=== PATIENT | male | born 1990 | race Two or more races ===

== ENCOUNTER 2018-03-27 14:08 | Emergency (ER) | payer OTHER ==
[2018-03-27 14:13] VITALS: TEMP 97.8
[2018-03-27] MEDS ORDERED: MORPHINE SULFATE 4 MG/ML SYRINGE IV STA (14:27)
[2018-03-27] MEDS ORDERED: SODIUM CHLORIDE 0.9% 1,000 ML IV STA (14:27)
[2018-03-27] MEDS ORDERED: ONDANSETRON 4 MG/2 ML VIAL IVP STA ×2 (14:27→16:48)
[2018-03-27] MEDS ORDERED: LORazepam 2 MG/ML INJ IV STA ×2 (14:28→16:48)
--- NOTE | 2018-03-27 14:37 | ED ---
General Adult HPI - General Source: patient, RN notes reviewed Mode of arrival: ambulatory Limitations: no limitations <Cristian Blood - Last Filed: 03/27/18 14:35> <Marcus Balderrama - Last Filed: 03/27/18 17:51> - General Chief complaint: Nausea/Vomiting/Diarrhea Stated complaint: Vomiting Time Seen by Provider: 03/27/18 14:23 - History of Present Illness Initial comments: Patient 28-year-old male significant past medical history for pancreatitis, who presented to the emergency room today with a chief complaint of increased abdominal pain over the last 2 days. He states had increased nausea vomiting and diarrhea. Denies any signs of blood. States feels similar to pick her tetanus is had in the past. Pain is sharp located in the upper abdomen. Patient does admit to history of pancreatitis from alcohol abuse. States that he didn't drink recently having a 12 pack 3 days ago. Patient denies any recent fever, chills, shortness of breath, chest pain, back pain, numbness or tingling , headaches or visual changes, or any other complaints. (Cristian Blood) - Related Data Home Medications Medication Instructions Recorded Confirmed Multivitamin,Therapeutic [Thera] 1 tab PO DAILY 03/27/18 03/27/18 Omeprazole 20 mg PO DAILY 03/27/18 03/27/18 Previous Rx's Medication Instructions Recorded HYDROcodone/APAP 5-325MG [[place] 1 tab PO Q6HR PRN 3 Days #12 tab 03/27/18 5-325] Ondansetron Odt [Zofran Odt] 4 mg PO Q8HR PRN #12 tab 03/27/18 Pantoprazole [Protonix] 40 mg PO DAILY #24 tablet. 03/27/18 Allergies Allergy/AdvReac Type Severity Reaction Status Date / Time Iodinated Contrast- Oral and Allergy Rash/Hives Verified 03/27/18 14:30 IV Dye zolpidem [From Ambien] Allergy Unknown Verified 03/27/18 14:30 Review of Systems ROS Other: All systems not noted in ROS Statement are negative. <Cristian Blood - Last Filed: 03/27/18 14:35> ROS Other: All systems not noted in ROS Statement are negative. <Marcus Balderrama - Last Filed: 03/27/18 17:51> ROS Statement: Those systems with pertinent positive or pertinent negative responses have been documented in the HPI. Past Medical History Past Medical History: GERD/Reflux, Seizure Disorder Additional Past Medical History / Comment(s): pancreatitis, stomach ulcers History of Any Multi-Drug Resistant Organisms: None Reported Past Surgical History: No Surgical Hx Reported Past Psychological History: Anxiety, Bipolar, Depression Smoking Status: Current every day smoker Past Alcohol Use History: Occasional Past Drug Use History: Marijuana <Cristian Blood - Last Filed: 03/27/18 14:35> General Exam Limitations: no limitations <Cristian Blood - Last Filed: 03/27/18 14:35> <Marcus Balderrama - Last Filed: 03/27/18 17:51> - General Exam Comments Initial Comments: General: The patient is awake and alert, in mild distress and anxious. Eye: Pupils are equal, round and reactive to light, extra-ocular movements are intact. No nystagmus. There is normal conjunctiva bilaterally. No signs of icterus. Ears, nose, mouth and throat: There are moist mucous membranes and no oral lesions. Neck: The neck is supple, there is no tenderness or JVD. Cardiovascular: There is a regular rate and rhythm. No murmur, rub or gallop is appreciated. Respiratory: Lungs are clear to auscultation, respirations are non-labored, breath sounds are equal. No wheezes, stridor, rales, or rhonchi. Gastrointestinal: Abdomen soft on palpation. Patient does have tenderness epigastric. No rebound, guarding or CVA tenderness. Musculoskeletal: Normal ROM, no tenderness. Neurological: A&O x 3. CN II-XII intact, There are no obvious motor or sensory deficits. Coordination appears grossly intact. Speech is normal. Skin: Skin is warm and dry and no rashes or lesions are noted. Psychiatric: Cooperative, appropriate mood & affect, normal judgment. (Cristian Blood) Vital Signs 03/27/18 03/27/18 03/27/18 14:08 15:12 17:43 Temperature 97.8 F Pulse Rate 129 H 65 68 Respiratory 24 20 16 Rate Blood Pressure 176/103 121/90 130/84 O2 Sat by Pulse 97 95 99 Oximetry Medical Decision Making <Cristian Blood - Last Filed: 03/27/18 14:35> - Lab Data Result diagrams: 03/27/18 14:36 03/27/18 14:36 <Marcus Balderrama - Last Filed: 03/27/18 17:51> - Medical Decision Making Patient care was sent out to me by previous shift physician assistant corporate controller. Briefly , patient is a 28-year-old male presents with abdominal pain. Patient had a relapse in alcohol. He drinks several alcoholic beverages. Since then he's been developing epigastric symptoms. Labs and imaging studies were unremarkable. Patient given GI cocktail analgesia and intravenous fluids. Reevaluation done by myself shows improvement of symptoms. Patient's abdomen is soft. Discussed patient that he should follow-up with GI doctor. Patient given by mouth analgesia, proton pump inhibitor and antinausea medication. Patient to be discharge. Given strict return precautions with worsening symptoms or constitutional symptoms. He is understandable and agreeable to plan. (Marcus Balderrama) - Lab Data Lab Results 03/27/18 03/27/18 03/27/18 Range/Units 14:36 14:36 15:10 WBC 11.5 H (3.8-10.6) k/uL RBC 5.70 (4.30-5.90) m/uL Hgb 17.6 H (13.0-17.5) gm/dL Hct 53.8 H (39.0-53.0) % MCV 94.3 (80.0-100.0) fL MCH 30.9 (25.0-35.0) pg MCHC 32.8 (31.0-37.0) g/dL RDW 12.4 (11.5-15.5) % Plt Count 464 H (150-450) k/uL Neutrophils % 70 % Lymphocytes % 22 % Monocytes % 5 % Eosinophils % 1 % Basophils % 1 % Neutrophils # 8.0 H (1.3-7.7) k/uL Lymphocytes # 2.5 (1.0-4.8) k/uL Monocytes # 0.6 (0-1.0) k/uL Eosinophils # 0.1 (0-0.7) k/uL Basophils # 0.1 (0-0.2) k/uL Sodium 136 L (137-145) mmol/L Potassium 4.3 (3.5-5.1) mmol/L Chloride 102 (98-107) mmol/L Carbon Dioxide 19 L (22-30) mmol/L Anion Gap 15 mmol/L BUN 14 (9-20) mg/dL Creatinine 0.97 (0.66-1.25) mg/dL Est GFR (CKD-EPI)AfAm >90 (>60 ml/min/1.73 sqM) Est GFR (CKD-EPI)NonAf >90 (>60 ml/min/1.73 sqM) Glucose 102 H (74-99) mg/dL Calcium 10.5 H (8.4-10.2) mg/dL Total Bilirubin 1.5 H (0.2-1.3) mg/dL AST 48 (17-59) U/L ALT 28 (21-72) U/L Alkaline Phosphatase 105 (38-126) U/L Total Protein 8.2 (6.3-8.2) g/dL Albumin 5.0 (3.5-5.0) g/dL Amylase 105 (30-110) U/L Lipase 177 (23-300) U/L Urine Color Dark Yellow Urine Appearance Cloudy (Clear) Urine pH 6.0 (5.0-8.0) Ur Specific [place] 1.027 (1.001-1.035) Urine Protein 2+ H (Negative) Urine Glucose (UA) Negative (Negative) Urine Ketones 4+ H (Negative) Urine Blood Negative (Negative) Urine Nitrite Negative (Negative) Urine Bilirubin 1+ H (Negative) Urine Urobilinogen 4.0 (<2.0) mg/dL Ur Leukocyte Esterase Negative (Negative) Urine RBC 2 (0-5) /hpf Urine WBC 3 (0-5) /hpf Hyaline Casts 4 H (0-2) /lpf Urine Mucus Many H (None) /hpf Disposition <Cristian Blood - Last Filed: 03/27/18 14:35> Is patient prescribed a controlled substance at d/c from ED?: Yes If prescribed controlled substance>3 days was MAPS reviewed?: Prescribed <3 Days Time of Disposition: 17:51 <Marcus Balderrama - Last Filed: 03/27/18 17:51> Clinical Impression: Abdominal pain Disposition: HOME SELF-CARE Condition: Good Instructions (If sedation given, give patient instructions): Acute Nausea and Vomiting in Children (ED) Prescriptions: HYDROcodone/APAP 5-325MG [[place] 5-325] 1 tab PO Q6HR PRN 3 Days #12 tab PRN Reason: Severe Pain Ondansetron Odt [Zofran Odt] 4 mg PO Q8HR PRN #12 tab PRN Reason: Nausea Pantoprazole [Protonix] 40 mg PO DAILY #24 tablet.dr Referrals: None,Stated [REFERRING] - 1-2 days Julian King MD [STAFF PHYSICIAN] - 1-2 days
[2018-03-27 14:58] LABS: Basophils # (A) 0.1 k/uL (0-0.2); Basophils % (A) 1 %; Eosinophils # (A) 0.1 k/uL (0-0.7); Eosinophils % (A) 1 %; HCT 53.8 % (39.0-53.0); HGB 17.6 gm/dL (13.0-17.5); Lymphocytes # (A) 2.5 k/uL (1.0-4.8); Lymphocytes % (A) 22 %; MCH 30.9 pg (25.0-35.0); MCHC 32.8 g/dL (31.0-37.0); MCV 94.3 fL (80.0-100.0); Mean Platelet Volume 6.2; Monocytes # (A) 0.6 k/uL (0-1.0); Monocytes % (A) 5 %; Neutrophils % (A) 70 %; Platelet Count 464 k/uL (150-450); RDW 12.4 % (11.5-15.5); WBC 11.5 k/uL (3.8-10.6)
[2018-03-27 15:08] LABS: Amylase 105 U/L (30-110); Anion Gap 15 mmol/L; Blood Urea Nitrogen 14 mg/dL (9-20); Calcium 10.5 mg/dL (8.4-10.2); Carbon Dioxide 19 mmol/L (22-30); Chloride 102 mmol/L (98-107); Glucose 102 mg/dL (74-99); Lipase 177 U/L (23-300); Sodium 136 mmol/L (137-145); Total Bilirubin 1.5 mg/dL (0.2-1.3); Total Protein 8.2 g/dL (6.3-8.2)
[2018-03-27 15:09] LABS: ALT 28 U/L (21-72); AST 48 U/L (17-59); Alkaline Phosphatase 105 U/L (38-126); Potassium 4.3 mmol/L (3.5-5.1)
--- NOTE | 2018-03-27 15:24 | XR ---
EXAMINATION TYPE: XR KUB DATE OF EXAM: 03/27/2018 COMPARISON: NONE HISTORY: Pain TECHNIQUE: One view abdominal series FINDINGS: The osseous structures are intact. The bowel gas pattern is nonspecific. Lung bases are clear. Calc ification the right upper quadrant noted. Metallic foreign body overlying the left sacrum. IMPRESSION: 1. Nonspecific abdomen. There is a metallic foreign body overlying the left sacrum. 2. Right upper quadrant calcification may be related to gallstone or hepatic granuloma.
[2018-03-27 15:30] LABS: Appearance,Urine Cloudy (Clear); Bilirubin,Urine 1+ (Negative); Blood,Urine Negative (Negative); Color,Urine Dark Yellow; Glucose,Urine (UA) Negative (Negative); Hyaline Casts,Urine 4 /lpf (0-2); Ketones,Urine 4+ (Negative); Leukocyte Esterase,Urine Negative (Negative); Mucus,Urine Many /hpf; Nitrite,Urine Negative (Negative); Protein,Urine 2+ (Negative); RBC,Urine 2 /hpf (0-5); Specific Gravity,Urine 1.027 (1.001-1.035)
--- NOTE | 2018-03-27 16:40 | US ---
EXAMINATION TYPE: US abdomen limited DATE OF EXAM: 03/27/2018 COMPARISON: xray CLINICAL HISTORY: Pain, nausea, vomiting and pain x 3 days EXAM MEASUREMENTS: Liver Length: 14.7 cm Gallbladder Wall: 0.2 cm CBD: 0.5 cm Right Kidney: 10.3 x 5.4 x 5.6 cm Patient has severe overlying bowel gas. He has a lot of pain and had difficulty holding his breath. E xam somewhat limited. Pancreas: Obscured by bowel gas Liver: shadowing echogenic focus right lobe of liver measuring 0.9 x 0.6 x 1.0cm Gallbladder: wnl Evidence for sonographic Jones's sign: no CBD: very limited visualization due due to overlying bowel gas Right Kidney: Inferior pole obscured by overlying bowel gas IMPRESSION: 1. Limited examination. 2. Hepatic of focal calcification.
[2018-03-27] MEDS ORDERED: MAG HYDROX/AL HYDROX/SIMETH 30 ML, HYOSCYAMINE ELIXIR 10 ML, CIMETIDINE HCL 300 MG, LID... PO STA ×4 (16:49)
[2018-03-27 17:44] VITALS: BP 130/84; PULSE 68; RESP 16
== END 2018-03-27 17:55 | disposition home or self-care (01) ==
LOC: EC 14:08
DX: R10.10 Upper abdominal pain, unspecified (principal); R11.2 Nausea with vomiting, unspecified; R19.7 Diarrhea, unspecified; K21.9 Gastro-esophageal reflux disease without esophagitis; F17.200 Nicotine dependence, unspecified, uncomplicated; Z79.899 Other long term (current) drug therapy; Z88.8 Allergy status to other drugs, medicaments and biological substances; Z91.041 Radiographic dye allergy status
CPT/HCPCS: 36415; 80053; 82150; 83690; 85025; 81001; 74018; 76705; 99284; 96374; 96375 ×2; 96376 ×2; 96361; J2060; J2270; J2405

== ENCOUNTER 2018-03-29 12:41 | Emergency (ER) | payer OTHER ==
[2018-03-29 13:06] VITALS: TEMP 98.3
[2018-03-29] MEDS ORDERED: SODIUM CHLORIDE 0.9% 1,000 ML IV STA ×2 (13:14)
[2018-03-29] MEDS ORDERED: ONDANSETRON 4 MG/2 ML VIAL IVP STA ×2 (13:14→16:30)
[2018-03-29] MEDS ORDERED: FAMOTIDINE 20 MG/2 ML VIAL IV STA (13:15)
[2018-03-29] MEDS ORDERED: LORazepam 2 MG/ML INJ IV STA ×2 (13:15→16:30)
--- NOTE | 2018-03-29 13:18 | ED ---
General Adult HPI - General Chief complaint: Nausea/Vomiting/Diarrhea Stated complaint: abd pain Time Seen by Provider: 03/29/18 13:10 Source: patient, RN notes reviewed, old records reviewed Mode of arrival: ambulatory Limitations: no limitations - History of Present Illness Initial comments: Patient 28-year-old male presenting to the emergency room today with a chief complaint of increased nausea vomiting over the last 5 days. Patient was seen here in the emergency room 2 days ago for this complaint. Patient admits to history of pancreatitis and states that this felt similar to him. Does admit that he was a drinker in the past did have some drinks over the weekend. Patient denies any signs of blood in the emesis. States he has had some decreased bowel movements. States GI cocktail he was here in the hospital helped him he went home and did okay for a day symptoms of increased nausea medicine at home has not helped. The pain both in the upper and lower abdomen. Patient denies any other complaints or symptoms. Patient denies any recent fever, chills, shortness of breath, chest pain, back pain, numbness or tingling , headaches or visual changes, or any other complaints. - Related Data Home Medications Medication Instructions Recorded Confirmed Multivitamin,Therapeutic [Thera] 1 tab PO DAILY 03/27/18 03/29/18 Omeprazole 20 mg PO DAILY 03/27/18 03/29/18 Gabapentin [Neurontin] 100 mg PO TID 03/29/18 03/29/18 Previous Rx's Medication Instructions Recorded HYDROcodone/APAP 5-325MG [[place] 1 tab PO Q6HR PRN 3 Days #12 tab 03/27/18 5-325] Ondansetron Odt [Zofran Odt] 4 mg PO Q8HR PRN #12 tab 03/27/18 Pantoprazole [Protonix] 40 mg PO DAILY #24 tablet. 03/27/18 Dicyclomine [Bentyl] 20 mg PO QID #20 tablet 03/29/18 Allergies Allergy/AdvReac Type Severity Reaction Status Date / Time Iodinated Contrast- Oral and Allergy Rash/Hives Verified 03/29/18 13:20 IV Dye zolpidem [From Ambien] Allergy Unknown Verified 03/29/18 13:20 Review of Systems ROS Statement: Those systems with pertinent positive or pertinent negative responses have been documented in the HPI. ROS Other: All systems not noted in ROS Statement are negative. Past Medical History Past Medical History: GERD/Reflux, Seizure Disorder Additional Past Medical History / Comment(s): pancreatitis, stomach ulcers History of Any Multi-Drug Resistant Organisms: None Reported Past Surgical History: No Surgical Hx Reported Past Psychological History: Anxiety, Bipolar, Depression Smoking Status: Current every day smoker Past Alcohol Use History: Occasional Past Drug Use History: Marijuana General Exam - General Exam Comments Initial Comments: General: The patient is awake and alert, in moderate distress. Eye: There is normal conjunctiva bilaterally. No signs of icterus. Ears, nose, mouth and throat: There are moist mucous membranes and no oral lesions. Neck: The neck is supple Cardiovascular: There is a regular rate and rhythm. No murmur, rub or gallop is appreciated. Respiratory: Lungs are clear to auscultation, respirations are non-labored, breath sounds are equal. No wheezes, stridor, rales, or rhonchi. Gastrointestinal: Abdomen soft palpation. Patient does have tenderness both the upper and lower quadrants. No rebound, guarding or CVA tenderness. Musculoskeletal: Normal ROM, no tenderness. Neurological: A&O x 3. CN II-XII intact, There are no obvious motor or sensory deficits. Coordination appears grossly intact. Speech is normal. Skin: Skin is warm and dry and no rashes or lesions are noted. Psychiatric: Cooperative, appropriate mood & affect, normal judgment. Limitations: no limitations Course Vital Signs 03/29/18 13:02 Temperature 98.3 F Pulse Rate 94 Respiratory 22 Rate Blood Pressure 129/88 O2 Sat by Pulse 98 Oximetry Medical Decision Making - Medical Decision Making Patient's labs been reviewed. Patient's CT the abdomen and pelvis does show evidence for possible colitis. Patient resting comfortably at this time admits to improvement after medications. Will be discharged home. Given a prescription for Bentyl for her symptoms. Advised return if symptoms increase or worsen. Advised following up over the next 2 days. - Lab Data Result diagrams: 03/29/18 13:31 03/29/18 13:31 Lab Results 03/29/18 03/29/18 03/29/18 Range/Units 13:31 13:31 13:36 WBC 6.7 (3.8-10.6) k/uL RBC 5.45 (4.30-5.90) m/uL Hgb 16.6 (13.0-17.5) gm/dL Hct 51.0 (39.0-53.0) % MCV 93.6 (80.0-100.0) fL MCH 30.4 (25.0-35.0) pg MCHC 32.5 (31.0-37.0) g/dL RDW 12.4 (11.5-15.5) % Plt Count 385 (150-450) k/uL Neutrophils % 55 % Lymphocytes % 32 % Monocytes % 6 % Eosinophils % 4 % Basophils % 1 % Neutrophils # 3.7 (1.3-7.7) k/uL Lymphocytes # 2.1 (1.0-4.8) k/uL Monocytes # 0.4 (0-1.0) k/uL Eosinophils # 0.3 (0-0.7) k/uL Basophils # 0.0 (0-0.2) k/uL Sodium 136 L (137-145) mmol/L Potassium 4.2 (3.5-5.1) mmol/L Chloride 106 (98-107) mmol/L Carbon Dioxide 21 L (22-30) mmol/L Anion Gap 9 mmol/L BUN 8 L (9-20) mg/dL Creatinine 0.79 (0.66-1.25) mg/dL Est GFR (CKD-EPI)AfAm >90 (>60 ml/min/1.73 sqM) Est GFR (CKD-EPI)NonAf >90 (>60 ml/min/1.73 sqM) Glucose 99 (74-99) mg/dL Calcium 9.6 (8.4-10.2) mg/dL Total Bilirubin 0.8 (0.2-1.3) mg/dL AST 39 (17-59) U/L ALT 31 (21-72) U/L Alkaline Phosphatase 62 (38-126) U/L Total Protein 7.0 (6.3-8.2) g/dL Albumin 4.2 (3.5-5.0) g/dL Amylase 77 (30-110) U/L Lipase 229 (23-300) U/L Urine Color Yellow Urine Appearance Clear (Clear) Urine pH 6.0 (5.0-8.0) Ur Specific [place] 1.020 (1.001-1.035) Urine Protein 1+ H (Negative) Urine Glucose (UA) Negative (Negative) Urine Ketones Trace H (Negative) Urine Blood Negative (Negative) Urine Nitrite Negative (Negative) Urine Bilirubin Negative (Negative) Urine Urobilinogen <2.0 (<2.0) mg/dL Ur Leukocyte Esterase Negative (Negative) Urine RBC 1 (0-5) /hpf Urine WBC 1 (0-5) /hpf Hyaline Casts 3 H (0-2) /lpf Urine Mucus Many H (None) /hpf Disposition Clinical Impression: Abdominal pain, Colitis Disposition: HOME SELF-CARE Condition: Good Instructions (If sedation given, give patient instructions): Abdominal Pain (ED ) Additional Instructions: Please use medication as discussed. Please follow-up with family doctor in the next 2 days of symptoms have not improved. Please return to emergency room if the symptoms increase or worsen or for any other concerns. Prescriptions: Dicyclomine [Bentyl] 20 mg PO QID #20 tablet Is patient prescribed a controlled substance at d/c from ED?: No Referrals: [facility] [Primary Care Provider] - 1-2 days Time of Disposition: 17:37
[2018-03-29 13:53] LABS: Basophils % (A) 1 %; Eosinophils # (A) 0.3 k/uL (0-0.7); Eosinophils % (A) 4 %; HGB 16.6 gm/dL (13.0-17.5); Lymphocytes # (A) 2.1 k/uL (1.0-4.8); Lymphocytes % (A) 32 %; MCH 30.4 pg (25.0-35.0); MCHC 32.5 g/dL (31.0-37.0); MCV 93.6 fL (80.0-100.0); Mean Platelet Volume 6.3; Monocytes # (A) 0.4 k/uL (0-1.0); Monocytes % (A) 6 %; Neutrophils # (A) 3.7 k/uL (1.3-7.7); Neutrophils % (A) 55 %; Platelet Count 385 k/uL (150-450); RBC 5.45 m/uL (4.30-5.90); RDW 12.4 % (11.5-15.5); WBC 6.7 k/uL (3.8-10.6)
[2018-03-29 14:05] LABS: ALT 31 U/L (21-72); AST 39 U/L (17-59); Albumin 4.2 g/dL (3.5-5.0); Alkaline Phosphatase 62 U/L (38-126); Amylase 77 U/L (30-110); Anion Gap 9 mmol/L; Blood Urea Nitrogen 8 mg/dL (9-20); Calcium 9.6 mg/dL (8.4-10.2); Carbon Dioxide 21 mmol/L (22-30); Chloride 106 mmol/L (98-107); Glucose 99 mg/dL (74-99); Lipase 229 U/L (23-300); Potassium 4.2 mmol/L (3.5-5.1); Sodium 136 mmol/L (137-145); Total Bilirubin 0.8 mg/dL (0.2-1.3)
[2018-03-29 14:13] LABS: Appearance,Urine Clear (Clear); Bilirubin,Urine Negative (Negative); Blood,Urine Negative (Negative); Color,Urine Yellow; Glucose,Urine (UA) Negative (Negative); Hyaline Casts,Urine 3 /lpf (0-2); Ketones,Urine Trace (Negative); Leukocyte Esterase,Urine Negative (Negative); Mucus,Urine Many /hpf; Nitrite,Urine Negative (Negative); Protein,Urine 1+ (Negative); RBC,Urine 1 /hpf (0-5); Urobilinogen,Urine <2.0 mg/dL (<2.0); WBC,Urine 1 /hpf (0-5)
[2018-03-29] MEDS ORDERED: diphenhydrAMINE 50 MG/ML 1 ML VIAL IVP STA (14:44)
[2018-03-29] MEDS ORDERED: methylPREDNISolone SOD SUCCI 125 MG/2 ML VIAL IV STA (14:44)
--- NOTE | 2018-03-29 15:50 | CT ---
EXAMINATION TYPE: CT abdomen pelvis w con DATE OF EXAM: 03/29/2018 COMPARISON: Correlation ultrasound 03/27/2018 HISTORY: 28-year-old male with abdominal pain and vomiting for 5 days TECHNIQUE: Contiguous axial scanning of the abdomen and pelvis following administration of 100 ml Iso lg 300 IV contrast. Delayed images through the kidneys and coronal/sagittal reconstructions perform ed. Patient was premedicated for a reaction characterized by hives occurring years ago. CT DLP: 817.8 mGycm Automated exposure control for dose reduction was used. FINDINGS: Heart normal size without pericardial effusion. Lung bases clear without pleural effusion. Some minim al strandy inferior lingular atelectasis. Focal 1.1 cm calcification inferior right liver lobe could represent a large calcified granuloma. Portal venous system is patent. No biliary ductal dilatation. Gallbladder, adrenal glands, spleen, pancreas appear within normal limits. No dilated small bowel, free fluid, or free air. Portions of a normal appendix are visualized. There may be some mucosal hyperemia of the cecum and lower ascending colon. No pericolonic inflammato ry change. A couple prominent right lower quadrant mesenteric lymph nodes measure up to 7 mm, coronal image 46. Mild circumferential bladder wall thickening. Right-sided pelvic phlebolith. Prostate gland measures 4.0 cm wide. No abnormal fluid collection in the pelvis or pelvic lymphadenopathy. Bones: No osseous destructive process. IMPRESSION: 1. MUCOSAL HYPEREMIA WITHIN THE CECUM AND ASCENDING COLON MAY REFLECT A MILD NONSPECIFIC COLITIS. CLI NICALLY CORRELATE. 2. MILD CIRCUMFERENTIAL BLADDER WALL THICKENING. CORRELATE TO EXCLUDE CYSTITIS.
[2018-03-29] MEDS ORDERED: MAG HYDROX/AL HYDROX/SIMETH 30 ML, HYOSCYAMINE ELIXIR 10 ML, CIMETIDINE HCL 300 MG, LID... PO STA ×4 (16:30)
[2018-03-29 18:11] VITALS: BP 135/78; PULSE 74; RESP 16
== END 2018-03-29 18:12 | disposition home or self-care (01) ==
LOC: EC 12:41
DX: K52.9 Noninfective gastroenteritis and colitis, unspecified (principal); K21.9 Gastro-esophageal reflux disease without esophagitis; G40.909 Epilepsy, unspecified, not intractable, without status epilepticus; F41.9 Anxiety disorder, unspecified; F17.200 Nicotine dependence, unspecified, uncomplicated; Z87.19 Personal history of other diseases of the digestive system; Z79.899 Other long term (current) drug therapy; Z88.8 Allergy status to other drugs, medicaments and biological substances; Z91.041 Radiographic dye allergy status
CPT/HCPCS: 36415; 74177; 80053; 81001; 82150; 83690; 85025; 96361; 96374; 96375; 96376; 99284

== ENCOUNTER 2018-05-01 16:00 | Emergency (ER) | payer OTHER ==
[2018-05-01] MEDS ORDERED: PANTOPRAZOLE 40 MG/10 ML VIAL IVP STA (16:46)
[2018-05-01] MEDS ORDERED: SODIUM CHLORIDE 0.9% 1,000 ML IV STA (16:46)
[2018-05-01] MEDS ORDERED: ONDANSETRON 4 MG/2 ML VIAL IVP STA (16:46)
[2018-05-01] MEDS ORDERED: KETOROLAC 30 MG/ML 1 ML VIAL IVP STA (16:46)
[2018-05-01] MEDS ORDERED: ACETAMINOPHEN TAB 500 MG TAB PO STA (16:47)
[2018-05-01] MEDS ORDERED: SODIUM CHLORIDE 0.9% 1,000 ML IV SCH (17:00)
--- NOTE | 2018-05-01 17:31 | ED ---
Recheck HPI - General Chief Complaint: Recheck/Abnormal Lab/Rx Stated Complaint: Dizzy, Weakness Time Seen by Provider: 05/01/18 16:40 Source: patient, RN notes reviewed, old records reviewed Mode of arrival: ambulatory Limitations: no limitations - History of Present Illness Initial Comments: 28-year-old male presents emergency room today with complaints of generalized feed T weakness. He states is been having body aches. HE STATES THAT HE'S HAD MULTIPLE EPISODES OF VOMITING. HE DENIES ANY ASSOCIATED CHEST PAIN SHORTNESS OF BREATH. HE HAS HAD A COUGH. PATIENT SENT NO SIGNIFICANT PAST MEDICAL HISTORY. - Related Data Home Medications Medication Instructions Recorded Confirmed Gabapentin [Neurontin] 300 mg PO TID 05/01/18 05/01/18 PARoxetine HCL [Paxil] 20 mg PO DAILY 05/01/18 05/01/18 lamoTRIgine [LaMICtal] 150 mg PO BID 05/01/18 05/01/18 traZODone HCL 150 mg PO HS 05/01/18 05/01/18 Previous Rx's Medication Instructions Recorded Pantoprazole [Protonix] 40 mg PO DAILY #24 tablet. 03/27/18 Omeprazole 40 mg PO DAILY #30 capsule. 05/01/18 Ondansetron Odt [Zofran Odt] 4 mg PO Q8HR PRN #12 tab 05/01/18 Allergies Allergy/AdvReac Type Severity Reaction Status Date / Time Iodinated Contrast- Oral and Allergy Rash/Hives Verified 05/01/18 18:09 IV Dye zolpidem [From Ambien] Allergy Unknown Verified 05/01/18 18:09 Review of Systems ROS Statement: Those systems with pertinent positive or pertinent negative responses have been documented in the HPI. ROS Other: All systems not noted in ROS Statement are negative. Past Medical History Past Medical History: GERD/Reflux, Seizure Disorder Additional Past Medical History / Comment(s): pancreatitis, stomach ulcers History of Any Multi-Drug Resistant Organisms: None Reported Past Surgical History: No Surgical Hx Reported Past Psychological History: Anxiety, Bipolar, Depression, Panic Disorder Smoking Status: Current every day smoker Past Alcohol Use History: Occasional Past Drug Use History: Marijuana General Exam - General Exam Comments Initial Comments: 28-year-old male. Alert and oriented. No distress. Limitations: no limitations General appearance: alert, in no apparent distress Head exam: Present: atraumatic, normocephalic, normal inspection Eye exam: Present: normal appearance, PERRL, EOMI. Absent: scleral icterus, conjunctival injection, periorbital swelling ENT exam: Present: normal exam, mucous membranes moist Neck exam: Present: normal inspection. Absent: tenderness, meningismus, lymphadenopathy Respiratory exam: Present: normal lung sounds bilaterally. Absent: respiratory distress, wheezes, rales, rhonchi, stridor Cardiovascular Exam: Present: regular rate, normal rhythm, normal heart sounds. Absent: systolic murmur, diastolic murmur, rubs, gallop, clicks GI/Abdominal exam: Present: soft, normal bowel sounds. Absent: distended, tenderness, guarding, rebound, rigid Extremities exam: Present: normal inspection, full ROM, normal capillary refill. Absent: tenderness, pedal edema, joint swelling, calf tenderness Back exam: Present: normal inspection Neurological exam: Present: alert, oriented X3, CN II-XII intact Psychiatric exam: Present: normal affect, normal mood Skin exam: Present: warm, dry, intact, normal color. Absent: rash Course Vital Signs 05/01/18 05/01/18 05/01/18 16:10 17:30 18:58 Temperature 97.9 F 97.1 F L Pulse Rate 76 60 59 L Respiratory 18 16 16 Rate Blood Pressure 115/70 135/68 136/71 O2 Sat by Pulse 95 98 98 Oximetry Medical Decision Making - Medical Decision Making This is a 28-year-old male presents for shortness of air general fatigue. Vomiting episodes. He complains chest discomfort and slight cough. Patient's lab work was reviewed and unremarkable. An IV fluids Toradol h and Protonix. He's had some episodes of GERD. At this time patient's lab work was otherwise unremarkable. Chest x-ray KUB are normal. EKG shows no acute changes. Discussed at this time patient's symptoms likely seemed a viral. We'll discharge Patient with Protonix and nausea medicine. Discussed close follow-up and return parameters. - Lab Data Result diagrams: 05/01/18 17:10 05/01/18 17:10 Lab Results 05/01/18 05/01/18 05/01/18 Range/Units 17:10 17:10 17:10 WBC 10.1 (3.8-10.6) k/uL RBC 4.81 (4.30-5.90) m/uL Hgb 14.9 (13.0-17.5) gm/dL Hct 44.8 (39.0-53.0) % MCV 93.0 (80.0-100.0) fL MCH 31.0 (25.0-35.0) pg MCHC 33.4 (31.0-37.0) g/dL RDW 12.5 (11.5-15.5) % Plt Count 387 (150-450) k/uL Neutrophils % 68 % Lymphocytes % 22 % Monocytes % 6 % Eosinophils % 1 % Basophils % 0 % Neutrophils # 6.9 (1.3-7.7) k/uL Lymphocytes # 2.2 (1.0-4.8) k/uL Monocytes # 0.6 (0-1.0) k/uL Eosinophils # 0.1 (0-0.7) k/uL Basophils # 0.0 (0-0.2) k/uL PT 10.4 (9.0-12.0) sec INR 1.0 (<1.2) APTT 26.2 (22.0-30.0) sec Sodium 137 (137-145) mmol/L Potassium 3.6 (3.5-5.1) mmol/L Chloride 102 (98-107) mmol/L Carbon Dioxide 25 (22-30) mmol/L Anion Gap 10 mmol/L BUN 6 L (9-20) mg/dL Creatinine 0.76 (0.66-1.25) mg/dL Est GFR (CKD-EPI)AfAm >90 (>60 ml/min/1.73 sqM) Est GFR (CKD-EPI)NonAf >90 (>60 ml/min/1.73 sqM) Glucose 89 (74-99) mg/dL Calcium 9.6 (8.4-10.2) mg/dL Magnesium 1.9 (1.6-2.3) mg/dL Total Bilirubin 0.7 (0.2-1.3) mg/dL AST 24 (17-59) U/L ALT 35 (21-72) U/L Alkaline Phosphatase 69 (38-126) U/L Total Protein 6.7 (6.3-8.2) g/dL Albumin 4.3 (3.5-5.0) g/dL Amylase 55 (30-110) U/L Lipase 101 (23-300) U/L Urine Color Urine Appearance (Clear) Urine pH (5.0-8.0) Ur Specific [place] (1.001-1.035) Urine Protein (Negative) Urine Glucose (UA) (Negative) Urine Ketones (Negative) Urine Blood (Negative) Urine Nitrite (Negative) Urine Bilirubin (Negative) Urine Urobilinogen (<2.0) mg/dL Ur Leukocyte Esterase (Negative) 05/01/18 Range/Units 19:04 WBC (3.8-10.6) k/uL RBC (4.30-5.90) m/uL Hgb (13.0-17.5) gm/dL Hct (39.0-53.0) % MCV (80.0-100.0) fL MCH (25.0-35.0) pg MCHC (31.0-37.0) g/dL RDW (11.5-15.5) % Plt Count (150-450) k/uL Neutrophils % % Lymphocytes % % Monocytes % % Eosinophils % % Basophils % % Neutrophils # (1.3-7.7) k/uL Lymphocytes # (1.0-4.8) k/uL Monocytes # (0-1.0) k/uL Eosinophils # (0-0.7) k/uL Basophils # (0-0.2) k/uL PT (9.0-12.0) sec INR (<1.2) APTT (22.0-30.0) sec Sodium (137-145) mmol/L Potassium (3.5-5.1) mmol/L Chloride (98-107) mmol/L Carbon Dioxide (22-30) mmol/L Anion Gap mmol/L BUN (9-20) mg/dL Creatinine (0.66-1.25) mg/dL Est GFR (CKD-EPI)AfAm (>60 ml/min/1.73 sqM) Est GFR (CKD-EPI)NonAf (>60 ml/min/1.73 sqM) Glucose (74-99) mg/dL Calcium (8.4-10.2) mg/dL Magnesium (1.6-2.3) mg/dL Total Bilirubin (0.2-1.3) mg/dL AST (17-59) U/L ALT (21-72) U/L Alkaline Phosphatase (38-126) U/L Total Protein (6.3-8.2) g/dL Albumin (3.5-5.0) g/dL Amylase (30-110) U/L Lipase (23-300) U/L Urine Color Colorless Urine Appearance Clear (Clear) Urine pH 6.5 (5.0-8.0) Ur Specific [place] 1.000 L (1.001-1.035) Urine Protein Negative (Negative) Urine Glucose (UA) Negative (Negative) Urine Ketones 1+ H (Negative) Urine Blood Negative (Negative) Urine Nitrite Negative (Negative) Urine Bilirubin Negative (Negative) Urine Urobilinogen <2.0 (<2.0) mg/dL Ur Leukocyte Esterase Negative (Negative) 05/01/18 17:30 EKG performed at 1642 shows sinus rhythm normal EKG. Ventricular 69 bpm. Verbal is 160 ms. QRS duration 86 no seconds. QT QTC 380/47 ms. - Radiology Data Radiology results: report reviewed Chest x-ray is negative for any acute process. KUB shows no acute process noted Disposition Clinical Impression: Nausea & vomiting, Fatigue Disposition: HOME SELF-CARE Condition: Good Instructions (If sedation given, give patient instructions): Acute Nausea and Vomiting (ED) Additional Instructions: Patient advised to follow-up with your primary care physician. Take nausea medicine and acid medication as prescribed. Prescriptions: Omeprazole 40 mg PO DAILY #30 capsule. Ondansetron Odt [Zofran Odt] 4 mg PO Q8HR PRN #12 tab PRN Reason: Nausea Is patient prescribed a controlled substance at d/c from ED?: No Referrals: Renetta Yang NPC [Nurse Practitioner] - 1-2 days Time of Disposition: 20:08
[2018-05-01 17:36] LABS: Basophils % (A) 0 %; Eosinophils # (A) 0.1 k/uL (0-0.7); Eosinophils % (A) 1 %; HCT 44.8 % (39.0-53.0); HGB 14.9 gm/dL (13.0-17.5); Lymphocytes # (A) 2.2 k/uL (1.0-4.8); Lymphocytes % (A) 22 %; MCHC 33.4 g/dL (31.0-37.0); Mean Platelet Volume 6.5; Monocytes # (A) 0.6 k/uL (0-1.0); Monocytes % (A) 6 %; Neutrophils # (A) 6.9 k/uL (1.3-7.7); Neutrophils % (A) 68 %; Platelet Count 387 k/uL (150-450); RBC 4.81 m/uL (4.30-5.90); RDW 12.5 % (11.5-15.5); WBC 10.1 k/uL (3.8-10.6)
[2018-05-01 17:47] LABS: ALT 35 U/L (21-72); AST 24 U/L (17-59); Albumin 4.3 g/dL (3.5-5.0); Alkaline Phosphatase 69 U/L (38-126); Amylase 55 U/L (30-110); Anion Gap 10 mmol/L; Blood Urea Nitrogen 6 mg/dL (9-20); Calcium 9.6 mg/dL (8.4-10.2); Carbon Dioxide 25 mmol/L (22-30); Chloride 102 mmol/L (98-107); Glucose 89 mg/dL (74-99); Lipase 101 U/L (23-300); Magnesium 1.9 mg/dL (1.6-2.3); Potassium 3.6 mmol/L (3.5-5.1); Sodium 137 mmol/L (137-145); Total Bilirubin 0.7 mg/dL (0.2-1.3); Total Protein 6.7 g/dL (6.3-8.2)
[2018-05-01 17:49] LABS: Partial Thromboplastin Time 26.2 sec (22.0-30.0); Prothrombin Time 10.4 sec (9.0-12.0)
--- NOTE | 2018-05-01 18:51 | XR ---
EXAMINATION: XR chest 2V DATE AND TIME: 05/01/2018 5:35 PM CLINICAL INDICATION: PHH; Pain TECHNIQUE: Departmental protocol COMPARISON: None FINDINGS: The lungs are clear. The pleural spaces are negative. The cardiac silhouette is not enlarged. The remainder of the mediastinal silhouette is unremarkable. The skeletal structures and soft tissues are negative for acute findings. IMPRESSION: NO ACUTE PROCESS.
--- NOTE | 2018-05-01 18:54 | XR ---
EXAMINATION TYPE: XR KUB, 2 views DATE OF EXAM: 05/01/2018 COMPARISON: 03/27/2018 HISTORY: Pain and constipation TECHNIQUE: 2 upright views FINDINGS: Visualized lung bases and pleural spaces are negative. There is no bowel obstruction. The bowel gas pattern is normal. No abnormal gas collections. No acute soft tissue or skeletal findings are evident. Previously seen right upper quadrant 1 cm calcification, consistent with healed granuloma versus chol elith, is unchanged. The 3 mm metallic BB-like opacity over the left sacral ala is also unchanged. IMPRESSION: No acute radiographic process.
[2018-05-01 18:58] VITALS: RESP 16; TEMP 97.1
[2018-05-01 18:59] VITALS: BP 136/71; PULSE 59
[2018-05-01 19:09] LABS: Appearance,Urine Clear (Clear); Bilirubin,Urine Negative (Negative); Blood,Urine Negative (Negative); Color,Urine Colorless; Glucose,Urine (UA) Negative (Negative); Ketones,Urine 1+ (Negative); Leukocyte Esterase,Urine Negative (Negative); Nitrite,Urine Negative (Negative); PH, Urine 6.5 (5.0-8.0); Protein,Urine Negative (Negative); Urobilinogen,Urine <2.0 mg/dL (<2.0)
== END 2018-05-01 20:42 | disposition home or self-care (01) ==
LOC: EC 16:00
DX: R11.2 Nausea with vomiting, unspecified (principal); R53.83 Other fatigue; R05 Cough; R53.1 Weakness; G40.909 Epilepsy, unspecified, not intractable, without status epilepticus; F31.9 Bipolar disorder, unspecified; F41.0 Panic disorder [episodic paroxysmal anxiety]; F17.200 Nicotine dependence, unspecified, uncomplicated; Z79.899 Other long term (current) drug therapy; Z88.8 Allergy status to other drugs, medicaments and biological substances; Z91.041 Radiographic dye allergy status
CPT/HCPCS: 36415; 93005; 80053; 82150; 83690; 83735; 85025; 85610; 85730; 81003; 87502; 71046; 74018; 99285; 96374; 96375 ×2; 96361 ×3; J2405; J1885; C9113

== ENCOUNTER 2018-05-05 11:23 | Emergency (ER) | payer OTHER ==
[2018-05-05 12:05] VITALS: TEMP 97.1
[2018-05-05] MEDS ORDERED: HYDROmorphone 0.5 MG/0.5 ML SYRINGE IVP STA (12:18)
[2018-05-05] MEDS ORDERED: ONDANSETRON ODT 8 MG TAB.RAPDIS PO STA (12:18)
[2018-05-05] MEDS ORDERED: SODIUM CHLORIDE 0.9% 2,000 ML IV STA (12:18)
--- NOTE | 2018-05-05 12:23 | ED ---
Abdominal Pain HPI - General Chief Complaint: Abdominal Pain Stated Complaint: Abd pain Time Seen by Provider: 05/05/18 12:02 Source: patient, EMS Mode of arrival: EMS - History of Present Illness Initial Comments: Patient is a 28-year-old male presenting for lower abdominal pain. The patient states that he does have a history of pancreatitis from alcohol abuse but that this feels different. He states that the pain was present in the lower abdomen last week and it got better. However, this morning it came back Positive for intermittent sensation like it is stabbing. He has had 10 episodes of nausea and vomiting but no diarrhea. He admits to chills but no fevers. He states that he did drink some alcohol last night but he did not drink a significant amount - Related Data Home Medications Medication Instructions Recorded Confirmed Gabapentin [Neurontin] 300 mg PO TID 05/01/18 05/01/18 PARoxetine HCL [Paxil] 20 mg PO DAILY 05/01/18 05/01/18 lamoTRIgine [LaMICtal] 150 mg PO BID 05/01/18 05/01/18 traZODone HCL 150 mg PO HS 05/01/18 05/01/18 Previous Rx's Medication Instructions Recorded Pantoprazole [Protonix] 40 mg PO DAILY #24 tablet. 03/27/18 Omeprazole 40 mg PO DAILY #30 capsule. 05/01/18 Ondansetron Odt [Zofran Odt] 4 mg PO Q8HR PRN #12 tab 05/01/18 chlordiazePOXIDE HCl [Librium] 25 mg PO TID 3 Days #12 capsule 05/05/18 Allergies Allergy/AdvReac Type Severity Reaction Status Date / Time Iodinated Contrast- Oral and Allergy Rash/Hives Verified 05/05/18 12:00 IV Dye zolpidem [From Ambien] Allergy Unknown Verified 05/05/18 12:00 Review of Systems ROS Statement: Those systems with pertinent positive or pertinent negative responses have been documented in the HPI. Constitutional: Negative for chills, fatigue and fever. HENT: Negative for congestion. Respiratory: Negative for chest tightness, shortness of breath and wheezing. Negative for cough Cardiovascular: Negative for chest pain and palpitations. Gastrointestinal: Positive for abdominal pain. Negative for abdominal distention, diarrhea, positive for nausea and vomiting. Genitourinary: Negative for dysuria. Musculoskeletal: Negative for back pain, neck pain and neck stiffness. Skin: Negative for color change. Neurological: Negative for dizziness, speech difficulty, weakness and light- headedness. Psychiatric/Behavioral: Negative for agitation and confusion. Negative for anxiety ROS Other: All systems not noted in ROS Statement are negative. Past Medical History Past Medical History: GERD/Reflux, Seizure Disorder Additional Past Medical History / Comment(s): pancreatitis, stomach ulcers History of Any Multi-Drug Resistant Organisms: None Reported Past Surgical History: No Surgical Hx Reported Past Psychological History: Anxiety, Bipolar, Depression, Panic Disorder Smoking Status: Current every day smoker Past Alcohol Use History: Occasional Past Drug Use History: Marijuana General Exam - General Exam Comments Initial Comments: Constitutional: Pt appears well-developed and well-nourished. No distress. Head: Normocephalic and atraumatic. Eyes: EOM are normal. Neck: Normal range of motion. Neck supple. Cardiovascular: Normal rate, regular rhythm, S1 normal, S2 normal and normal heart sounds. Exam reveals no gallop and no friction rub. No murmur heard. Pulmonary/Chest: Effort normal and breath sounds normal. No tachypnea and no bradypnea. No respiratory distress. No wheezes or rales noted. Abdominal: Soft. Bowel sounds are normal. Pt exhibits no shifting dullness, no distension, no pulsatile liver, no fluid wave, no abdominal bruit and no asc ites. There is no rigidity, no rebound, no guarding, no tenderness at McBurney's point and negative Jones's sign. There is diffuse abdominal tenderness Musculoskeletal: Normal range of motion. Neurological: Pt is alert and oriented to person, place, and time. No cranial nerve deficit. Skin: Skin is warm and dry. No rash noted. Pt is not diaphoretic. No erythema. No pallor. Psychiatric: Pt has a normal mood and affect. Pt behavior is normal. Thought content normal. Course Vital Signs 05/05/18 05/05/18 12:00 14:45 Temperature 97.1 F L 97.1 F L Pulse Rate 66 63 Respiratory 20 16 Rate Blood Pressure 128/63 108/78 O2 Sat by Pulse 99 99 Oximetry Medical Decision Making - Medical Decision Making Lavatory studies show that there was mild leukocytosis of 15.4 but there was no clear identifiable source of infection as urinalysis was negative for infection. There is also no evidence of significant transaminitis and CT of the abdomen was unremarkable for emergent pathology.It was explained that while there does not appear to be an emergent process, the etiology of the symptoms are still unclear and may need further workup as an outpatient if symptoms continue. Explained all labs and diagnostic test results and that we will discharge the patient home and patient is to follow up with PCP in 1-2 days and return to the ED if symptoms worsen. Pt is agreeable to plan. - Lab Data Result diagrams: 05/05/18 12:45 05/05/18 12:45 Lab Results 05/05/18 05/05/18 05/05/18 Range/Units 12:45 12:45 13:15 WBC 15.4 H (3.8-10.6) k/uL RBC 4.69 (4.30-5.90) m/uL Hgb 14.5 (13.0-17.5) gm/dL Hct 44.6 (39.0-53.0) % MCV 95.1 (80.0-100.0) fL MCH 30.8 (25.0-35.0) pg MCHC 32.4 (31.0-37.0) g/dL RDW 13.0 (11.5-15.5) % Plt Count 396 (150-450) k/uL Neutrophils % 78 % Lymphocytes % 14 % Monocytes % 5 % Eosinophils % 2 % Basophils % 0 % Neutrophils # 12.0 H (1.3-7.7) k/uL Lymphocytes # 2.1 (1.0-4.8) k/uL Monocytes # 0.8 (0-1.0) k/uL Eosinophils # 0.3 (0-0.7) k/uL Basophils # 0.1 (0-0.2) k/uL Sodium 140 (137-145) mmol/L Potassium 3.5 (3.5-5.1) mmol/L Chloride 106 (98-107) mmol/L Carbon Dioxide 28 (22-30) mmol/L Anion Gap 6 mmol/L BUN 10 (9-20) mg/dL Creatinine 0.67 (0.66-1.25) mg/dL Est GFR (CKD-EPI)AfAm >90 (>60 ml/min/1.73 sqM) Est GFR (CKD-EPI)NonAf >90 (>60 ml/min/1.73 sqM) Glucose 89 (74-99) mg/dL Calcium 9.0 (8.4-10.2) mg/dL Total Bilirubin 0.4 (0.2-1.3) mg/dL AST 28 (17-59) U/L ALT 34 (21-72) U/L Alkaline Phosphatase 70 (38-126) U/L Total Protein 5.9 L (6.3-8.2) g/dL Albumin 3.6 (3.5-5.0) g/dL Lipase 125 (23-300) U/L Urine Color Yellow Urine Appearance Cloudy (Clear) Urine pH 8.0 (5.0-8.0) Ur Specific [place] 1.016 (1.001-1.035) Urine Protein Trace H (Negative) Urine Glucose (UA) Negative (Negative) Urine Ketones Negative (Negative) Urine Blood Negative (Negative) Urine Nitrite Negative (Negative) Urine Bilirubin Negative (Negative) Urine Urobilinogen <2.0 (<2.0) mg/dL Ur Leukocyte Esterase Negative (Negative) Amorphous Sediment Occasional H (None) /hpf Urine Mucus Moderate H (None) /hpf Disposition Clinical Impression: Alcohol abuse, Abdominal pain Disposition: HOME SELF-CARE Condition: Good Instructions (If sedation given, give patient instructions): Abdominal Pain (ED) Prescriptions: chlordiazePOXIDE HCl [Librium] 25 mg PO TID 3 Days #12 capsule Is patient prescribed a controlled substance at d/c from ED?: No Referrals: [facility] [Primary Care Provider] - 1-2 days Time of Disposition: 14:36
[2018-05-05] MEDS ORDERED: methylPREDNISolone SOD SUCCI 125 MG/2 ML VIAL IV STA (12:50)
[2018-05-05] MEDS ORDERED: FAMOTIDINE 20 MG/2 ML VIAL IV STA (12:50)
[2018-05-05] MEDS ORDERED: diphenhydrAMINE 50 MG/ML 1 ML VIAL IVP STA (12:50)
[2018-05-05] MEDS ORDERED: ONDANSETRON 4 MG/2 ML VIAL IVP STA (12:51)
[2018-05-05 13:01] LABS: Basophils # (A) 0.1 k/uL (0-0.2); Basophils % (A) 0 %; Eosinophils # (A) 0.3 k/uL (0-0.7); Eosinophils % (A) 2 %; HCT 44.6 % (39.0-53.0); HGB 14.5 gm/dL (13.0-17.5); Lymphocytes # (A) 2.1 k/uL (1.0-4.8); Lymphocytes % (A) 14 %; MCH 30.8 pg (25.0-35.0); MCHC 32.4 g/dL (31.0-37.0); MCV 95.1 fL (80.0-100.0); Mean Platelet Volume 6.5; Monocytes # (A) 0.8 k/uL (0-1.0); Monocytes % (A) 5 %; Neutrophils % (A) 78 %; Platelet Count 396 k/uL (150-450); RBC 4.69 m/uL (4.30-5.90); WBC 15.4 k/uL (3.8-10.6)
[2018-05-05 13:31] LABS: ALT 34 U/L (21-72); AST 28 U/L (17-59); Albumin 3.6 g/dL (3.5-5.0); Alkaline Phosphatase 70 U/L (38-126); Anion Gap 6 mmol/L; Blood Urea Nitrogen 10 mg/dL (9-20); Carbon Dioxide 28 mmol/L (22-30); Chloride 106 mmol/L (98-107); Glucose 89 mg/dL (74-99); Lipase 125 U/L (23-300); Potassium 3.5 mmol/L (3.5-5.1); Sodium 140 mmol/L (137-145); Total Bilirubin 0.4 mg/dL (0.2-1.3); Total Protein 5.9 g/dL (6.3-8.2)
[2018-05-05 13:32] LABS: Amorphous Sediment,Urine Occasional /hpf; Appearance,Urine Cloudy (Clear); Bilirubin,Urine Negative (Negative); Blood,Urine Negative (Negative); Color,Urine Yellow; Glucose,Urine (UA) Negative (Negative); Ketones,Urine Negative (Negative); Leukocyte Esterase,Urine Negative (Negative); Mucus,Urine Moderate /hpf; Nitrite,Urine Negative (Negative); Protein,Urine Trace (Negative); Specific Gravity,Urine 1.016 (1.001-1.035); Urobilinogen,Urine <2.0 mg/dL (<2.0)
--- NOTE | 2018-05-05 14:04 | CT ---
EXAMINATION TYPE: CT abdomen pelvis w con DATE OF EXAM: 05/05/2018 COMPARISON: 03/29/2018 HISTORY: LLQ pain CT DLP: 898.6 mGycm Automated exposure control for dose reduction was used. TECHNIQUE: Helical acquisition of images was performed from the lung bases through the pelvis. CONTRAST: Performed without Oral Contrast and with IV Contrast, patient injected with 100 mL of Isovue 300. FINDINGS: LUNG BASES: No significant abnormality is appreciated. LIVER/GB: Hepatic parenchyma is diffusely hypoattenuated in comparison to that of the spleen, most co mmonly seen in hepatic steatosis. This finding limits evaluation for hepatic masses. No gross evidenc e of hepatic mass is seen. No intrahepatic biliary ductal dilatation. Calcified hepatic granulomas ar e noted. No cholelithiasis. PANCREAS: No significant abnormality is seen. SPLEEN: No significant abnormality is seen. ADRENALS: No significant abnormality is seen. KIDNEYS: Kidneys enhance and excrete symmetrically. FREE AIR: No free air is visualized. REPRODUCTIVE ORGANS: No significant abnormality is seen URINARY BLADDER: No significant abnormality is seen. ADENOPATHY: No greater than 1 cm short axis lymph node within the abdomen or pelvis. OSSEOUS STRUCTURES: No significant abnormality is seen. BOWEL: Appendix is air-filled and within normal limits. No dilated large or small bowel. The previou sly seen ascending colon inflammatory fat stranding and hyperemia is resolved in the interim. Decompr ession of the colon somewhat limits evaluation of the bowel as does lack oral contrast. IMPRESSION: 1. NO CT FINDING TO CORRESPOND TO THE PATIENT'S LEFT FLANK PAIN. BOWEL IS SOMEWHAT SUBOPTIMALLY EVALU ATED WITHOUT ORAL CONTRAST. 2. Mild hepatic steatosis.
[2018-05-05 14:48] VITALS: BP 108/78; PULSE 63; RESP 16
== END 2018-05-05 14:51 | disposition home or self-care (01) ==
LOC: EC 11:23
DX: D72.829 Elevated white blood cell count, unspecified (principal); G40.909 Epilepsy, unspecified, not intractable, without status epilepticus; F41.9 Anxiety disorder, unspecified; F32.9 Major depressive disorder, single episode, unspecified; F17.200 Nicotine dependence, unspecified, uncomplicated; Z87.19 Personal history of other diseases of the digestive system; Z79.899 Other long term (current) drug therapy; Z91.041 Radiographic dye allergy status; Z88.8 Allergy status to other drugs, medicaments and biological substances; Z53.8 Procedure and treatment not carried out for other reasons
CPT/HCPCS: 36415; 80053; 83690; 85025; 81001; 74177; 99285; 96374; 96375 ×4; 96361 ×2; J1200; J2930; J2405; J1170; Q9967

== ENCOUNTER 2018-06-18 10:30 | Emergency (ER) | payer OTHER ==
[2018-06-18 11:09] VITALS: RESP 18
[2018-06-18] MEDS ORDERED: SODIUM CHLORIDE 0.9% 1,000 ML IV STA (11:47)
[2018-06-18] MEDS ORDERED: LORazepam 2 MG/ML INJ IV STA (11:47)
[2018-06-18] MEDS ORDERED: ONDANSETRON 4 MG/2 ML VIAL IVP STA (11:48)
[2018-06-18 12:42] LABS: Basophils # (A) 0.1 k/uL (0-0.2); Basophils % (A) 1 %; Eosinophils # (A) 0.4 k/uL (0-0.7); Eosinophils % (A) 4 %; HCT 49.5 % (39.0-53.0); HGB 16.4 gm/dL (13.0-17.5); Lymphocytes # (A) 1.9 k/uL (1.0-4.8); Lymphocytes % (A) 22 %; MCH 31.3 pg (25.0-35.0); MCHC 33.2 g/dL (31.0-37.0); MCV 94.3 fL (80.0-100.0); Monocytes # (A) 0.5 k/uL (0-1.0); Monocytes % (A) 5 %; Neutrophils # (A) 5.7 k/uL (1.3-7.7); Neutrophils % (A) 65 %; Platelet Count 579 k/uL (150-450); RBC 5.25 m/uL (4.30-5.90); RDW 14.2 % (11.5-15.5); WBC 8.7 k/uL (3.8-10.6)
[2018-06-18 12:55] LABS: ALT 35 U/L (21-72); AST 48 U/L (17-59); Acetaminophen <10.0 ug/mL; Albumin 4.4 g/dL (3.5-5.0); Alcohol <10 mg/dL; Alkaline Phosphatase 81 U/L (38-126); Anion Gap 7 mmol/L; Blood Urea Nitrogen 10 mg/dL (9-20); Calcium 9.7 mg/dL (8.4-10.2); Carbon Dioxide 26 mmol/L (22-30); Chloride 106 mmol/L (98-107); Glucose 82 mg/dL (74-99); Magnesium 1.9 mg/dL (1.6-2.3); Phosphorus 2.7 mg/dL (2.5-4.5); Potassium 4.1 mmol/L (3.5-5.1); Salicylate <1.0 mg/dL; Sodium 139 mmol/L (137-145); Total Bilirubin 0.7 mg/dL (0.2-1.3); Total Protein 6.7 g/dL (6.3-8.2)
--- NOTE | 2018-06-18 13:06 | ED ---
Seizure HPI - General Chief Complaint: Seizure Stated Complaint: seizure, rt hand injury Time Seen by Provider: 06/18/18 11:21 Source: patient, RN notes reviewed, old records reviewed Mode of arrival: ambulatory Limitations: no limitations - History of Present Illness Initial Comments: This is a 1-year-old male to ER for evaluation today. Today he is presenting for evaluation regards to recurrent seizures. Patient has history of seizures states he's had nausea vomiting so unable take meds the last 2 days. No recent travel history no sick contacts. Patient states from the seizure today he feels like he landed on his right hand and it may be broken. Denies any other complaints MD Complaint: seizure -: days(s) Description of Episode: loss of consciousness -: minutes(s) Witnessed: yes - by bystander Trauma: Yes Seizure History: none Place: home Possible Precipitating Event: none Associated Symptoms: denies other symptoms Treatments Prior to Arrival: none - Related Data Home Medications Medication Instructions Recorded Confirmed Gabapentin [Neurontin] 300 mg PO TID 05/01/18 06/18/18 PARoxetine HCL [Paxil] 20 mg PO DAILY 05/01/18 06/18/18 lamoTRIgine [LaMICtal] 150 mg PO BID 05/01/18 06/18/18 traZODone HCL 150 mg PO HS 05/01/18 06/18/18 Metoclopramide [Reglan] 10 mg PO ACHS PRN 06/18/18 06/18/18 Previous Rx's Medication Instructions Recorded Omeprazole 40 mg PO DAILY #30 capsule. 05/01/18 Ondansetron Odt [Zofran ODT] 4 mg PO Q8HR PRN #10 tab 06/18/18 Allergies Allergy/AdvReac Type Severity Reaction Status Date / Time Iodinated Contrast- Oral and Allergy Rash/Hives Verified 06/18/18 11:26 IV Dye zolpidem [From Ambien] Allergy Unknown Verified 06/18/18 11:26 Review of Systems ROS Statement: Those systems with pertinent positive or pertinent negative responses have been documented in the HPI. ROS Other: All systems not noted in ROS Statement are negative. Past Medical History Past Medical History: GERD/Reflux, Seizure Disorder Additional Past Medical History / Comment(s): pancreatitis, stomach ulcers History of Any Multi-Drug Resistant Organisms: None Reported Past Surgical History: No Surgical Hx Reported Past Psychological History: Anxiety, Bipolar, Depression, Panic Disorder Smoking Status: Current every day smoker Past Alcohol Use History: Occasional Past Drug Use History: Marijuana General Exam Limitations: no limitations General appearance: alert, in no apparent distress Head exam: Present: atraumatic, normocephalic, normal inspection Eye exam: Present: normal appearance, PERRL, EOMI. Absent: scleral icterus, conjunctival injection, periorbital swelling ENT exam: Present: normal exam, mucous membranes moist Neck exam: Present: normal inspection. Absent: tenderness, meningismus, lymphadenopathy Respiratory exam: Present: normal lung sounds bilaterally. Absent: respiratory distress, wheezes, rales, rhonchi, stridor Cardiovascular Exam: Present: regular rate, normal rhythm, normal heart sounds. Absent: systolic murmur, diastolic murmur, rubs, gallop, clicks GI/Abdominal exam: Present: soft, normal bowel sounds. Absent: distended, tenderness, guarding, rebound, rigid Extremities exam: Present: normal inspection, full ROM, normal capillary refill. Absent: tenderness, pedal edema, joint swelling, calf tenderness Back exam: Present: normal inspection Neurological exam: Present: alert, oriented X3, CN II-XII intact Psychiatric exam: Present: normal affect, normal mood Skin exam: Present: warm, dry, intact, normal color. Absent: rash Course Vital Signs 06/18/18 06/18/18 11:06 14:17 Temperature 98.3 F 98 F Pulse Rate 75 85 Respiratory 18 18 Rate Blood Pressure 117/80 132/88 O2 Sat by Pulse 98 100 Oximetry - Reevaluation(s) Reevaluation #1: Record is reviewed Patient is without seizure activity here in the ER Procedures - Orthopedic Splinting/Casting Injury #1 Side: right Upper Extremity Injury Location: wrist, hand Upper Extremity Immobilizer: ulnar gutter Medical Decision Making - Medical Decision Making 28-year-old male the ER for evaluation seizure history of seizures. Patient also seen broken finger, broken hand. Patient's hand is splinted. Patient can be discharged home - Lab Data Result diagrams: 06/18/18 12:26 06/18/18 12:26 Lab Results 06/18/18 06/18/18 06/18/18 Range/Units 12:26 12:26 13:20 WBC 8.7 (3.8-10.6) k/uL RBC 5.25 (4.30-5.90) m/uL Hgb 16.4 (13.0-17.5) gm/dL Hct 49.5 (39.0-53.0) % MCV 94.3 (80.0-100.0) fL MCH 31.3 (25.0-35.0) pg MCHC 33.2 (31.0-37.0) g/dL RDW 14.2 (11.5-15.5) % Plt Count 579 H (150-450) k/uL Neutrophils % 65 % Lymphocytes % 22 % Monocytes % 5 % Eosinophils % 4 % Basophils % 1 % Neutrophils # 5.7 (1.3-7.7) k/uL Lymphocytes # 1.9 (1.0-4.8) k/uL Monocytes # 0.5 (0-1.0) k/uL Eosinophils # 0.4 (0-0.7) k/uL Basophils # 0.1 (0-0.2) k/uL Sodium 139 (137-145) mmol/L Potassium 4.1 (3.5-5.1) mmol/L Chloride 106 (98-107) mmol/L Carbon Dioxide 26 (22-30) mmol/L Anion Gap 7 mmol/L BUN 10 (9-20) mg/dL Creatinine 0.64 L (0.66-1.25) mg/dL Est GFR (CKD-EPI)AfAm >90 (>60 ml/min/1.73 sqM) Est GFR (CKD-EPI)NonAf >90 (>60 ml/min/1.73 sqM) Glucose 82 (74-99) mg/dL Calcium 9.7 (8.4-10.2) mg/dL Phosphorus 2.7 (2.5-4.5) mg/dL Magnesium 1.9 (1.6-2.3) mg/dL Total Bilirubin 0.7 (0.2-1.3) mg/dL AST 48 (17-59) U/L ALT 35 (21-72) U/L Alkaline Phosphatase 81 (38-126) U/L Total Protein 6.7 (6.3-8.2) g/dL Albumin 4.4 (3.5-5.0) g/dL Urine Color Urine Appearance (Clear) Urine pH (5.0-8.0) Ur Specific [place] (1.001-1.035) Urine Protein (Negative) Urine Glucose (UA) (Negative) Urine Ketones (Negative) Urine Blood (Negative) Urine Nitrite (Negative) Urine Bilirubin (Negative) Urine Urobilinogen (<2.0) mg/dL Ur Leukocyte Esterase (Negative) Urine RBC (0-5) /hpf Urine WBC (0-5) /hpf Ur Squamous Epith Cells (0-4) /hpf Urine Mucus (None) /hpf Salicylates <1.0 mg/dL Urine Opiates Screen Detected H (NotDetected) Ur Oxycodone Screen Not Detected (NotDetected) Urine Methadone Screen Not Detected (NotDetected) Ur Propoxyphene Screen Not Detected (NotDetected) Acetaminophen <10.0 ug/mL Ur Barbiturates Screen Not Detected (NotDetected) U Tricyclic Antidepress Not Detected (NotDetected) Ur Phencyclidine Scrn Not Detected (NotDetected) Ur Amphetamines Screen Not Detected (NotDetected) U Methamphetamines Scrn Not Detected (NotDetected) U Benzodiazepines Scrn Not Detected (NotDetected) Urine Cocaine Screen Not Detected (NotDetected) U Marijuana (THC) Screen Detected H (NotDetected) Serum Alcohol <10 mg/dL 06/18/18 Range/Units 13:20 WBC (3.8-10.6) k/uL RBC (4.30-5.90) m/uL Hgb (13.0-17.5) gm/dL Hct (39.0-53.0) % MCV (80.0-100.0) fL MCH (25.0-35.0) pg MCHC (31.0-37.0) g/dL RDW (11.5-15.5) % Plt Count (150-450) k/uL Neutrophils % % Lymphocytes % % Monocytes % % Eosinophils % % Basophils % % Neutrophils # (1.3-7.7) k/uL Lymphocytes # (1.0-4.8) k/uL Monocytes # (0-1.0) k/uL Eosinophils # (0-0.7) k/uL Basophils # (0-0.2) k/uL Sodium (137-145) mmol/L Potassium (3.5-5.1) mmol/L Chloride (98-107) mmol/L Carbon Dioxide (22-30) mmol/L Anion Gap mmol/L BUN (9-20) mg/dL Creatinine (0.66-1.25) mg/dL Est GFR (CKD-EPI)AfAm (>60 ml/min/1.73 sqM) Est GFR (CKD-EPI)NonAf (>60 ml/min/1.73 sqM) Glucose (74-99) mg/dL Calcium (8.4-10.2) mg/dL Phosphorus (2.5-4.5) mg/dL Magnesium (1.6-2.3) mg/dL Total Bilirubin (0.2-1.3) mg/dL AST (17-59) U/L ALT (21-72) U/L Alkaline Phosphatase (38-126) U/L Total Protein (6.3-8.2) g/dL Albumin (3.5-5.0) g/dL Urine Color Yellow Urine Appearance Clear (Clear) Urine pH 7.0 (5.0-8.0) Ur Specific [place] 1.024 (1.001-1.035) Urine Protein Trace H (Negative) Urine Glucose (UA) Negative (Negative) Urine Ketones 2+ H (Negative) Urine Blood Negative (Negative) Urine Nitrite Negative (Negative) Urine Bilirubin Negative (Negative) Urine Urobilinogen 2.0 (<2.0) mg/dL Ur Leukocyte Esterase Small H (Negative) Urine RBC 1 (0-5) /hpf Urine WBC 3 (0-5) /hpf Ur Squamous Epith Cells <1 (0-4) /hpf Urine Mucus Few H (None) /hpf Salicylates mg/dL Urine Opiates Screen (NotDetected) Ur Oxycodone Screen (NotDetected) Urine Methadone Screen (NotDetected) Ur Propoxyphene Screen (NotDetected) Acetaminophen ug/mL Ur Barbiturates Screen (NotDetected) U Tricyclic Antidepress (NotDetected) Ur Phencyclidine Scrn (NotDetected) Ur Amphetamines Screen (NotDetected) U Methamphetamines Scrn (NotDetected) U Benzodiazepines Scrn (NotDetected) Urine Cocaine Screen (NotDetected) U Marijuana (THC) Screen (NotDetected) Serum Alcohol mg/dL - EKG Data -: EKG Interpreted by Me (EKG shows sinus rhythm rate of 61, VA 150, QRS 80, QTC 410) - Radiology Data Radiology results: report reviewed (X-ray right hand is positive for fifth metacarpal fracture), image reviewed Disposition Clinical Impression: Epileptic seizure, Nausea & vomiting, Fracture of fifth metacarpal bone Disposition: HOME SELF-CARE Condition: Good Instructions (If sedation given, give patient instructions): Hand Fracture (ED), Acute Nausea and Vomiting (ED), Recurrent Seizures in Adults (ED) Prescriptions: Ondansetron Odt [Zofran ODT] 4 mg PO Q8HR PRN #10 tab PRN Reason: nausea/vomiting Is patient prescribed a controlled substance at d/c from ED?: No Referrals: [facility] [Primary Care Provider] - 1-2 days Fransisco Jain DO [Doctor of Osteopathic Medicine] - 1-2 days
[2018-06-18] MEDS ORDERED: lamoTRIgine 100 MG TAB PO STA (13:43)
[2018-06-18] MEDS ORDERED: lamoTRIgine 25 MG TAB PO STA (13:43)
[2018-06-18 13:50] LABS: Appearance,Urine Clear (Clear); Bilirubin,Urine Negative (Negative); Blood,Urine Negative (Negative); Color,Urine Yellow; Glucose,Urine (UA) Negative (Negative); Ketones,Urine 2+ (Negative); Leukocyte Esterase,Urine Small (Negative); Mucus,Urine Few /hpf; Nitrite,Urine Negative (Negative); Protein,Urine Trace (Negative); RBC,Urine 1 /hpf (0-5); Specific Gravity,Urine 1.024 (1.001-1.035); Squamous Epithelial Cell,Urine <1 /hpf (0-4)
--- NOTE | 2018-06-18 13:50 | XR ---
Right wrist HISTORY: Trauma and pain Four views of the right wrist There is an oblique fracture through the proximal fifth metacarpal with minimal displacement and angu lation. No evident dislocation. There is soft tissue swelling present. Questionable step off at the m edial aspect of the triquetrum on the oblique view. IMPRESSION: Proximal fifth metacarpal fracture, difficult to exclude triquetral fracture.
[2018-06-18 13:55] LABS: Cocaine Screen,Urine Not Detected (NotDetected); Phencyclidine Screen,Urine Not Detected (NotDetected); Urn Cannabinoid Scrn Detected (NotDetected)
[2018-06-18 13:56] LABS: Amphetamine Screen,Urine Not Detected (NotDetected); Barbiturate Screen,Urine Not Detected (NotDetected); Benzodiazepines Screen,Urine Not Detected (NotDetected); Methadone Screen, Urine Not Detected (NotDetected); Opiate Screen,Urine Detected (NotDetected); Oxycodone Screen, Urine Not Detected (NotDetected); Tricyclic Antidepressant,Urine Not Detected (NotDetected)
[2018-06-18 14:18] VITALS: BP 132/88; PULSE 85; TEMP 98
== END 2018-06-18 14:18 | disposition home or self-care (01) ==
LOC: EC 10:30
DX: S62.306A Unspecified fracture of fifth metacarpal bone, right hand, initial encounter for closed fracture (principal); G40.909 Epilepsy, unspecified, not intractable, without status epilepticus; R11.2 Nausea with vomiting, unspecified; F31.9 Bipolar disorder, unspecified; F41.0 Panic disorder [episodic paroxysmal anxiety]; F17.200 Nicotine dependence, unspecified, uncomplicated; Z79.899 Other long term (current) drug therapy; Z88.8 Allergy status to other drugs, medicaments and biological substances; Z91.041 Radiographic dye allergy status; W08.XXXA Fall from other furniture, initial encounter
CPT/HCPCS: 36415; 93005; 80053; 80175; 83735; 84100; 85025; 81001; 80306; 83520; 73110; 99284; 29125; 96374; 96375; 96361; G0480 ×2; J2060; J2405; 80320; 80329

== ENCOUNTER → 2018-10-22 | Outpatient (CLI) | payer OTHER ==
--- NOTE | 2018-10-22 09:46 | FL ---
EXAMINATION TYPE: FL barium swallow DATE OF EXAM: 10/22/2018 CLINICAL HISTORY: Dysphagia. History of esophageal varices approximately 10 years ago. Gastroesophage al reflux. TECHNIQUE: A double contrast esophagram is performed utilizing air and barium. A total of 1 minute and 11 seconds of fluoroscopic time was utilized during procedure. 38 fluoroscopic images were saved during the examination. COMPARISON: None FINDINGS: The esophagus shows normal motility and emptying into the stomach. No extrinsic compression is identified. Esophageal mucosa remains smooth. No evidence of hiatal hernia or stricture noted. Mi ld degree gastroesophageal reflux was seen during real time performance of this study to the level of the distal third of the esophagus. IMPRESSION: Mild gastroesophageal reflux is seen to the level of the distal esophagus without evidenc e of stricture nor hiatal hernia. No extrinsic compression on the esophagus is seen to suggest paraes ophageal varices however small varices may not be seen on esophagram and could be further evaluated w ith CT if there is continued clinical concern.
== END | disposition home or self-care (01) ==
LOC: RADUSWWP 09:02
PROVIDERS: ATTEND Internal Medicine
DX: K21.9 Gastro-esophageal reflux disease without esophagitis (principal)
CPT/HCPCS: 74220

== ENCOUNTER 2018-11-12 12:16 | Inpatient (IN) | payer OTHER ==
[2018-11-12] MEDS ORDERED: SODIUM CHLORIDE 0.9% 1,000 ML IV STA (12:34)
[2018-11-12] MEDS ORDERED: ONDANSETRON 4 MG/2 ML VIAL IVP STA (12:34)
[2018-11-12] MEDS ORDERED: MORPHINE SULFATE 4 MG/ML SYRINGE IV STA (12:34)
--- NOTE | 2018-11-12 13:00 | ED ---
Abdominal Pain HPI - General Chief Complaint: Abdominal Pain Stated Complaint: Abd.pain Time Seen by Provider: 11/12/18 12:25 Source: patient, RN notes reviewed Mode of arrival: ambulatory Limitations: no limitations - History of Present Illness Initial Comments: 28-year-old male presents emergency from chief complaint abdominal pain. Patient states she was recently hospitalized at [facility] for acute pancreatitis. Patient states that he does have a history of this in which it spun induced by alcohol. Patient states he has not drank since his been out of the hospital he did follow-up with Eduarda mars with GI today. Patient states that he was ordered lab work and EGD was that the pain worsened and he presented emergency department. Patient reports no fevers chills he doesn't some nausea no vomiting or diarrhea constipation. Patient does have a history of gastric ulcers - Related Data Home Medications Medication Instructions Recorded Confirmed lamoTRIgine [LaMICtal] 150 mg PO BID 05/01/18 11/12/18 traZODone HCL 150 mg PO HS 05/01/18 11/12/18 Gabapentin 600 mg PO TID 11/12/18 11/12/18 Lisinopril-Hctz 10-12.5 mg 1 tab PO DAILY 11/12/18 11/12/18 [Zestoretic 10-12.5] Allergies Allergy/AdvReac Type Severity Reaction Status Date / Time Iodinated Contrast- Oral and Allergy Rash/Hives Verified 11/12/18 13:08 IV Dye zolpidem [From Ambien] Allergy Unknown Verified 11/12/18 13:08 Review of Systems ROS Statement: Those systems with pertinent positive or pertinent negative responses have been documented in the HPI. ROS Other: All systems not noted in ROS Statement are negative. Past Medical History Past Medical History: GERD/Reflux, Seizure Disorder Additional Past Medical History / Comment(s): pancreatitis, stomach ulcers History of Any Multi-Drug Resistant Organisms: None Reported Past Surgical History: No Surgical Hx Reported Past Psychological History: Anxiety, Bipolar, Depression, Panic Disorder Smoking Status: Current every day smoker Past Alcohol Use History: Occasional Past Drug Use History: Marijuana General Exam Limitations: no limitations General appearance: alert, in no apparent distress Head exam: Present: atraumatic, normocephalic, normal inspection Eye exam: Present: normal appearance, PERRL, EOMI. Absent: scleral icterus, conjunctival injection, periorbital swelling ENT exam: Present: normal exam, normal oropharynx, mucous membranes moist Neck exam: Present: normal inspection, full ROM. Absent: tenderness, meningismus, lymphadenopathy Respiratory exam: Present: normal lung sounds bilaterally. Absent: respiratory distress, wheezes, rales, rhonchi, stridor Cardiovascular Exam: Present: regular rate, normal rhythm, normal heart sounds. Absent: systolic murmur, diastolic murmur, rubs, gallop, clicks GI/Abdominal exam: Present: soft, tenderness (Midabdominal tenderness), normal bowel sounds. Absent: distended, guarding, rebound, rigid Back exam: Absent: CVA tenderness (R), CVA tenderness (L) Neurological exam: Present: alert Skin exam: Present: warm, dry, intact, normal color. Absent: rash Course Vital Signs 11/12/18 12:21 Temperature 97.8 F Pulse Rate 66 Respiratory 18 Rate Blood Pressure 119/74 O2 Sat by Pulse 98 Oximetry Medical Decision Making - Medical Decision Making 28-year-old male presented for abdominal pain. Patient has recurrent pancreatitis. Patient's lipase is 1415. Patient will be admitted for acute pancreatitis, GI. - Lab Data Result diagrams: 11/12/18 12:50 11/12/18 12:50 Lab Results 11/12/18 11/12/18 11/12/18 Range/Units 12:50 12:50 12:50 WBC 10.2 (3.8-10.6) k/uL RBC 4.65 (4.30-5.90) m/uL Hgb 14.0 (13.0-17.5) gm/dL Hct 42.7 (39.0-53.0) % MCV 91.8 (80.0-100.0) fL MCH 30.0 (25.0-35.0) pg MCHC 32.7 (31.0-37.0) g/dL RDW 13.7 (11.5-15.5) % Plt Count 897 H (150-450) k/uL Neutrophils % 69 % Lymphocytes % 17 % Monocytes % 5 % Eosinophils % 4 % Basophils % 3 % Neutrophils # 7.1 (1.3-7.7) k/uL Lymphocytes # 1.7 (1.0-4.8) k/uL Monocytes # 0.5 (0-1.0) k/uL Eosinophils # 0.4 (0-0.7) k/uL Basophils # 0.3 H (0-0.2) k/uL Sodium 141 (137-145) mmol/L Potassium 4.5 (3.5-5.1) mmol/L Chloride 105 (98-107) mmol/L Carbon Dioxide 25 (22-30) mmol/L Anion Gap 11 mmol/L BUN 8 L (9-20) mg/dL Creatinine 0.63 L (0.66-1.25) mg/dL Est GFR (CKD-EPI)AfAm >90 (>60 ml/min/1.73 sqM) Est GFR (CKD-EPI)NonAf >90 (>60 ml/min/1.73 sqM) Glucose 100 H (74-99) mg/dL Calcium 9.9 (8.4-10.2) mg/dL Total Bilirubin 0.2 (0.2-1.3) mg/dL AST 40 (17-59) U/L ALT 28 (21-72) U/L Alkaline Phosphatase 83 (38-126) U/L Total Protein 7.1 (6.3-8.2) g/dL Albumin 4.2 (3.5-5.0) g/dL Amylase 110 (30-110) U/L Lipase 1415 H (23-300) U/L Urine Color Light Yellow Urine Appearance Clear (Clear) Urine pH 6.0 (5.0-8.0) Ur Specific [place] 1.008 (1.001-1.035) Urine Protein Negative (Negative) Urine Glucose (UA) Negative (Negative) Urine Ketones Negative (Negative) Urine Blood Negative (Negative) Urine Nitrite Negative (Negative) Urine Bilirubin Negative (Negative) Urine Urobilinogen <2.0 (<2.0) mg/dL Ur Leukocyte Esterase Negative (Negative) Disposition Clinical Impression: Acute on chronic pancreatitis Disposition: ADMITTED IP TO THIS [facility] Referrals: [facility] [Primary Care Provider] - 1-2 days
[2018-11-12 13:07] LABS: Appearance,Urine Clear (Clear); Basophils # (A) 0.3 k/uL (0-0.2); Basophils % (A) 3 %; Bilirubin,Urine Negative (Negative); Blood,Urine Negative (Negative); Color,Urine Light Yellow; Eosinophils # (A) 0.4 k/uL (0-0.7); Eosinophils % (A) 4 %; Glucose,Urine (UA) Negative (Negative); HCT 42.7 % (39.0-53.0); Ketones,Urine Negative (Negative); Leukocyte Esterase,Urine Negative (Negative); Lymphocytes # (A) 1.7 k/uL (1.0-4.8); Lymphocytes % (A) 17 %; MCHC 32.7 g/dL (31.0-37.0); MCV 91.8 fL (80.0-100.0); Mean Platelet Volume 6.2; Monocytes # (A) 0.5 k/uL (0-1.0); Monocytes % (A) 5 %; Neutrophils # (A) 7.1 k/uL (1.3-7.7); Neutrophils % (A) 69 %; Nitrite,Urine Negative (Negative); Platelet Count 897 k/uL (150-450); Protein,Urine Negative (Negative); RBC 4.65 m/uL (4.30-5.90); RDW 13.7 % (11.5-15.5); Specific Gravity,Urine 1.008 (1.001-1.035); Urobilinogen,Urine <2.0 mg/dL (<2.0); WBC 10.2 k/uL (3.8-10.6)
[2018-11-12 13:17] LABS: ALT 28 U/L (21-72); AST 40 U/L (17-59); African American GFR (CKD) >90 (>60 ml/min/1.73 sqM); Albumin 4.2 g/dL (3.5-5.0); Alkaline Phosphatase 83 U/L (38-126); Amylase 110 U/L (30-110); Anion Gap 11 mmol/L; Blood Urea Nitrogen 8 mg/dL (9-20); Calcium 9.9 mg/dL (8.4-10.2); Carbon Dioxide 25 mmol/L (22-30); Chloride 105 mmol/L (98-107); Glucose 100 mg/dL (74-99); Potassium 4.5 mmol/L (3.5-5.1); Sodium 141 mmol/L (137-145); Total Bilirubin 0.2 mg/dL (0.2-1.3); Total Protein 7.1 g/dL (6.3-8.2)
[2018-11-12] MEDS ORDERED: KETOROLAC 30 MG/ML 1 ML VIAL IVP PRN (13:34)
[2018-11-12] MEDS ORDERED: NALOXONE 0.4 MG/ML 1 ML VIAL IV PRN (13:34)
[2018-11-12] MEDS ORDERED: ONDANSETRON 4 MG/2 ML VIAL IVP PRN (13:34)
[2018-11-12] MEDS: SODIUM CHLORIDE 0.9% 1,000 ML IV SCH ×2 (15:06→21:16)
[2018-11-12] MEDS: GABAPENTIN 300 MG CAP PO SCH ×2 (15:06→21:23)
[2018-11-12] MEDS: MORPHINE SULFATE 4 MG/ML SYRINGE IV PRN ×3 (15:06→23:04)
[2018-11-12] MEDS ORDERED: IOPAMIDOL-300 CONTRAST 30 ML VIAL (ORAL USE) PO PRN (18:01)
[2018-11-12] MEDS ORDERED: TEMAZEPAM 15 MG CAP PO PRN (18:02)
[2018-11-12] MEDS ORDERED: LORazepam 1 MG TAB PO PRN (18:02)
[2018-11-12] MEDS: BARIUM SULFATE 450 ML ORAL.SUSP BOTTLE PO PRN ×2 (20:01→23:00)
--- NOTE | 2018-11-12 20:53 | HP ---
HISTORY AND PHYSICAL DATE OF SERVICE: 11/12/2018 CHIEF COMPLAINT: Epigastric pain. HISTORY OF PRESENT ILLNESS: This 28-year-old gentleman with a past medical history of multiple medical problems, including history of GERD, seizure disorder, history of pancreatitis, history of anxiety, bipolar depression, panic disorder, being followed by [facility] in the outpatient setting, was complaining of epigastric abdominal pain. The patient apparently was recently admitted to [facility] with acute pancreatitis for several days. The patient has not drunk alcohol since he was discharged. The patient had a GI followup, but because of increasing pain the patient came to [facility] and was admitted for evaluation and treatment. The platelets were found to be [address] scan of the abdomen and pelvis in February was unremarkable. There is no history of any fever, rigor or chills. No history of headache, loss of consciousness, seizures at this time. PAST MEDICAL HISTORY: 1. History of GERD. 2. Seizure disorder. 3. History of pancreatitis. 4. Stomach ulcers. HOME MEDICATIONS: 1. Trazodone 150 mg at bedtime. 2. Lisinopril. 3. Zestoretic 12/08.5 mg p.o. daily. 4. Gabapentin 600 mg p.o. b.i.d. 5. Lamictal 150 mg p.o. b.i.d. ALLERGIES: 1. IODINATED CONTRAST DYE. 2. AMBIEN. FAMILY HISTORY: No history of heart disease or strokes in the family. SOCIAL HISTORY: History of THC, history of smoking. REVIEW OF SYSTEMS: ENT: No diminished hearing. No diminished vision. CARDIOVASCULAR SYSTEM: No angina, palpitations. RESPIRATORY SYSTEM: No cough, hemoptysis. GI: As mentioned earlier. : No dysuria or retention. NERVOUS SYSTEM: No numbness, weakness. ALLERGY/IMMUNOLOGY: No asthma, hayfever. MUSCULOSKELETAL: As mentioned earlier. HEMATOLOGY/ONCOLOGY: No history of anemia. ENDOCRINE: No history of diabetes, hypothyroidism. CONSTITUTIONAL: As mentioned earlier. DERMATOLOGY: Negative. RHEUMATOLOGY: Negative. PSYCHIATRY: As mentioned earlier. PHYSICAL EXAMINATION: Patient alert and oriented x3. Pulse is 56, blood pressure 105/63, respirations 16, temperature 97.4, pulse ox 99% on room air. HEENT: Conjunctivae normal. Oral mucosa moist. NECK: No jugular venous distention. No carotid bruit. No lymph node enlargement. CARDIOVASCULAR SYSTEM: S1, S2 muffled. RESPIRATORY SYSTEM: Breath sounds diminished at the bases. No rhonchi. No crackles. ABDOMEN: Soft. Mild diffuse discomfort on palpation. No guarding. No rigidity. No mass palpable. LEGS: No edema. No swelling. NERVOUS SYSTEM: No focal deficit. LABS: CBC within normal limits. Platelets 897. Glucose is 100. Lipase is 1415. Amylase is 110. ASSESSMENT: 1. Abdominal pain with possible acute pancreatitis. 2. History of recent acute pancreatitis. 3. Continued abdominal pain. 4. Increased platelets. 5. Gastroesophageal reflux disease. 6. Seizure disorder. 7. History of anxiety, bipolar, depression. 8. History of panic disorder. 9. History of tetrahydrocannabinol. 10.History of nicotine dependence. RECOMMENDATIONS AND DISCUSSION: In this 28-year-old gentleman who presented with multiple complex medical issues, we will monitor the patient closely, continue the current management, continue symptomatic treatment. I also recommend a CT scan of the abdomen and pelvis. Otherwise, gastroenterology consultation. Guarded prognosis because of multiple complex medical issues. Symptomatic treatment. Further recommendations to follow. MMODL / IJN: [id number] /
[2018-11-12] MEDS: traZODone HCL 50 MG TAB PO SCH (21:22)
[2018-11-12] MEDS: lamoTRIgine 100 MG TAB PO SCH (21:22)
[2018-11-12] MEDS: PANTOPRAZOLE 40 MG/10 ML VIAL IVP SCH (21:22)
[2018-11-12] MEDS: HEPARIN SODIUM,PORCINE 5,000 UNIT/ML 1 ML VIAL SQ SCH (21:23)
[2018-11-12 23:16] LABS: Amphetamine Screen,Urine Not Detected (NotDetected); Barbiturate Screen,Urine Not Detected (NotDetected); Benzodiazepines Screen,Urine Detected (NotDetected); Cocaine Screen,Urine Not Detected (NotDetected); Methadone Screen, Urine Not Detected (NotDetected); Opiate Screen,Urine Detected (NotDetected); Oxycodone Screen, Urine Not Detected (NotDetected); Phencyclidine Screen,Urine Not Detected (NotDetected); Tricyclic Antidepressant,Urine Not Detected (NotDetected); Urn Cannabinoid Scrn Detected (NotDetected)
--- NOTE | 2018-11-13 01:01 | CT ---
EXAM: CT Abdomen and Pelvis Without Intravenous Contrast CLINICAL HISTORY: ITS.REASON CT Reason: pancreatitis, pseudo cyst? TECHNIQUE: Axial computed tomography images of the abdomen and pelvis without intravenous contrast. CTDI is 9.4 mGy and DLP is 502.3 mGy-cm. This CT exam was performed using one or more of the following dose reduction techniques: automated exposure control, adjustment of the mA and/or kV according to patient size, and/or use of iterative reconstruction technique. COMPARISON: 05/05/18. FINDINGS: Lung bases demonstrate mild dependent atelectasis. Peripancreatic edema is consistent with provided history of pancreatitis. No pseudocyst. No clear glandular hemorrhage. Once again, there are several nonspecific liver calcifications. These were not associated with a mass on prior study with contrast. Biliary tree is unremarkable. There is stranding posterior to the descending colon. Favor dissection of retroperitoneal fluid from pancreatitis. Colitis is less likely. No bowel obstruction or perforation. Unremarkable appendix. Tiny fatty umbilical hernia. No acute fracture. IMPRESSION: Peripancreatic edema, consistent with provided history of pancreatitis. No pseudocyst. Fluid about the descending colon is favored to reflect dissection of retroperitoneal fluid rather than colitis.
[2018-11-13] MEDS: MORPHINE SULFATE 4 MG/ML SYRINGE IV PRN ×2 (04:37→11:28)
[2018-11-13] MEDS: lamoTRIgine 100 MG TAB PO SCH ×2 (07:45→21:04)
[2018-11-13] MEDS: HEPARIN SODIUM,PORCINE 5,000 UNIT/ML 1 ML VIAL SQ SCH ×2 (07:45→21:04)
[2018-11-13] MEDS: PANTOPRAZOLE 40 MG/10 ML VIAL IVP SCH ×2 (07:45→21:04)
[2018-11-13] MEDS: NICOTINE 14MG/24HR PATCH TRANSDERM SCH (07:47)
[2018-11-13] MEDS: HYDROcodone/APAP 5-325MG 1 EACH TAB PO PRN ×3 (07:53→21:04)
[2018-11-13] MEDS: GABAPENTIN 300 MG CAP PO SCH ×3 (07:53→21:07)
[2018-11-13] MEDS: LISINOPRIL-HCTZ 10-12.5 MG 1 EACH TAB PO SCH (07:56)
[2018-11-13 08:16] LABS: ALT 25 U/L (21-72); AST 25 U/L (17-59); African American GFR (CKD) >90 (>60 ml/min/1.73 sqM); Albumin 3.3 g/dL (3.5-5.0); Alkaline Phosphatase 65 U/L (38-126); Amylase 85 U/L (30-110); Anion Gap 9 mmol/L; Blood Urea Nitrogen 7 mg/dL (9-20); Calcium 9.1 mg/dL (8.4-10.2); Carbon Dioxide 26 mmol/L (22-30); Chloride 106 mmol/L (98-107); Glucose 82 mg/dL (74-99); Potassium 4.4 mmol/L (3.5-5.1); Sodium 141 mmol/L (137-145); Total Bilirubin 0.3 mg/dL (0.2-1.3); Total Protein 5.9 g/dL (6.3-8.2)
[2018-11-13 08:40] LABS: Basophils # (A) 0.1 k/uL (0-0.2); Basophils % (A) 1 %; Eosinophils # (A) 0.5 k/uL (0-0.7); Eosinophils % (A) 7 %; HGB 11.7 gm/dL (13.0-17.5); Lymphocytes # (A) 2.4 k/uL (1.0-4.8); Lymphocytes % (A) 33 %; MCH 29.5 pg (25.0-35.0); MCHC 31.8 g/dL (31.0-37.0); Mean Platelet Volume 6.4; Monocytes # (A) 0.6 k/uL (0-1.0); Monocytes % (A) 8 %; Neutrophils # (A) 3.4 k/uL (1.3-7.7); Neutrophils % (A) 48 %; Platelet Count 774 k/uL (150-450); RBC 3.98 m/uL (4.30-5.90); RDW 13.6 % (11.5-15.5); WBC 7.1 k/uL (3.8-10.6)
[2018-11-13] MEDS: SODIUM CHLORIDE 0.9% 1,000 ML IV SCH ×2 (11:31→18:56)
--- NOTE | 2018-11-13 13:51 | PN ---
PROGRESS NOTE DATE OF SERVICE: 11/13/2018 This is a 28-year-old gentleman admitted with epigastric pain and features of acute pancreatitis, patient was recently admitted to [facility] for a prolonged period of time because of pancreatitis and other associated medical issues. Gastrology consultation underway. CAT scan of the abdomen was done which showed evidence of peripancreatic edema with history of pancreatitis and as well, descending colon with a retroperitoneal fluid also, otherwise amylase and the lipase is elevated at 1181. Patient complains of severe pain at this time. Drug screen positive for benzodiazepines and THC and opiates. Family history reviewed. PAST MEDICAL HISTORY: Noted. REVIEW OF SYSTEMS: CARDIOVASCULAR SYSTEM: No angina. RESPIRATION: As mentioned earlier. GI: As mentioned earlier. : No dysuria. NERVOUS SYSTEM: No numbness or weakness. CURRENT MEDICATIONS: 1. Warriormine 5 mg q.6 p.r.n. 2. Neurontin 600 mg p.o. t.i.d. 3. Zestoretic 12.5 daily. 4. Heparin 5000 subcu b.i.d. 5. Toradol 30 mg q.6. 6. Lamictal 150 mg p.o. b.i.d. 7. Ativan 0.5 mg q.h.s. 8. Multivitamins. 9. Narcan. 10.Habitrol 14. 11.Protonix. 12.Restoril. 13.Desyrel. PHYSICAL EXAM: Patient is alert and oriented x3. Pulse is 55, blood pressure 104/60, respiration 20, temperature 97.7, pulse ox 98% on room air. HEENT: Conjunctivae normal. NECK: No jugular venous distension. CARDIOVASCULAR SYSTEM: S1, S2, muffled. RESPIRATION: Breath sounds diminished at the bases, no rhonchi, no crackles. ABDOMEN: Soft, mild diffuse distention. Mild diffuse tenderness present. No guarding. No rigidity. Bowel sounds present. NERVOUS SYSTEM: No focal deficits. LAB STUDIES: This time shows WBC 7.8, hemoglobin 11.7, albumin is 3.3, ALT, AST noted. ASSESSMENT: 1. Acute severe pancreatitis with recurrent pancreatitis. 2. History of recent acute pancreatitis. 3. Continued abdominal pain. 4. Increased platelets with thrombocytosis. 5. Gastroesophageal reflux disease. 6. Seizure disorder history. 7. History of anxiety, bipolar depression. 8. History of panic disorder. 9. History of THC. 10.History of nicotine dependence. RECOMMENDATION: Recommend to continue current medications and symptomatic treatment. Otherwise at this time, I recommend pain medications. Repeat labs. CT scan reviewed. Await Gastroenterology evaluation. Prognosis guarded. Further recommendations to follow. MMWALEL / IJN: [id number] /
--- NOTE | 2018-11-13 20:48 | CONS ---
CONSULTATION REQUESTING PHYSICIAN: Dr. Sawyer. REASON FOR CONSULTATION: Acute pancreatitis. HISTORY OF THE PRESENT ILLNESS: The patient is a 28-year-old pleasant white male who was admitted to the hospital with epigastric pain for the last 1 month duration. He was admitted to the [facility] with acute pancreatitis and was hospitalized for a week. He was discharged home and continued to have persistent epigastric pain and hence was seen by Eduarda Garcia, GI physician assistant in nursing yesterday because of the persistent symptoms. He was scheduled for an upper endoscopy in a week. In the meantime, his pain continues to progressively get worse. Hence he went to the emergency room last night and had repeat labs done that showed an elevated lipase at 1415 and amylase is , and subsequently admitted to the hospital for management of pancreatitis. History of heavy alcohol abuse which he quit drinking about 2 months ago. He denies any fever, chills, night sweats. No coffee ground emesis. PAST MEDICAL HISTORY: GERD, seizure disorder, pancreatitis a month ago. MEDICATIONS: At home include: Lamictal, Gabapentin, Zestoretic, lisinopril, and Trazodone. SOCIAL HISTORY: Heavy alcohol use which he quit drinking 2 months ago, history of smoking and THC use. FAMILY HISTORY: Unremarkable. ALLERGIES: IV DYE AND AMBIEN. REVIEW OF SYSTEMS: CARDIOPULMONARY: No chest pain, shortness of breath. GENITOURINARY: No dysuria or hematuria. MUSCULOSKELETAL: Chronic back pain. NEUROLOGY unremarkable. PSYCHIATRIC unremarkable. Anxiety/depression. ENT/VISION: Unremarkable. CONSTITUTIONAL: No recent weight loss. No fever, chills, night sweats. HEMATOLOGY unremarkable. ENDOCRINE unremarkable. DERMATOLOGY unremarkable. PHYSICAL EXAMINATION: He appears comfortable. No apparent distress. Vital signs are stable. Blood pressure is 112/86, pulse rate 82 per minute and afebrile. HEENT examination unremarkable. Conjunctivae pink. Sclerae anicteric. Oral cavity no lesions. NECK: No JVD or lymph node enlargement. CHEST: Clear to auscultation. HEART: Regular rate and rhythm. ABDOMEN: Soft. Bowel sounds are positive. Minimal tenderness in the epigastric area. EXTREMITIES: No pedal edema. SKIN no rashes. NEUROLOGIC: Alert and oriented x3. No focal deficits. LABS: WBC 10.2, hemoglobin 14, platelets normal. Lipase is 1415 and today it is 1181. ALT, AST, T-bilirubin and alkaline phosphatase are within normal limits. IMPRESSION: 1. This is a patient who presents with epigastric pain for the last 1 month duration. Recent hospitalization with acute pancreatitis a month ago at [facility] and was discharged home 3 weeks ago, now presents with persistent epigastric pain that has been ongoing since discharge from the hospital. Repeat labs once again show elevated lipase consistent with acute pancreatitis, most likely we are dealing with a chronic relapsing pancreatitis. He did have a CT of the abdomen and pelvis done yesterday in the emergency room that showed peripancreatic edema consistent with pancreatitis, but no true pseudocyst formation. 2. Heavy alcohol abuse which he quit drinking 2 months ago. RECOMMENDATIONS: 1. Start him on a clear liquid diet. 2. Symptomatic and supportive care. 3. Strict abstinence from alcohol. 4. Repeat labs in the morning. 5. We will follow up with you closely during his hospital stay. Thank you for this consultation. POWER / SHANNANN: [id number] /
[2018-11-13] MEDS: traZODone HCL 50 MG TAB PO SCH (21:04)
[2018-11-14] MEDS: SODIUM CHLORIDE 0.9% 1,000 ML IV SCH ×2 (04:40→15:20)
[2018-11-14] MEDS: GABAPENTIN 300 MG CAP PO SCH ×3 (08:00→21:56)
[2018-11-14] MEDS: HYDROcodone/APAP 5-325MG 1 EACH TAB PO PRN ×2 (08:01→19:55)
[2018-11-14] MEDS: HEPARIN SODIUM,PORCINE 5,000 UNIT/ML 1 ML VIAL SQ SCH ×2 (08:01→21:54)
[2018-11-14] MEDS: PANTOPRAZOLE 40 MG/10 ML VIAL IVP SCH (08:01)
[2018-11-14] MEDS: NICOTINE 14MG/24HR PATCH TRANSDERM SCH (08:01)
[2018-11-14] MEDS: lamoTRIgine 100 MG TAB PO SCH ×2 (08:02→21:56)
[2018-11-14] MEDS: LISINOPRIL-HCTZ 10-12.5 MG 1 EACH TAB PO SCH (08:03)
[2018-11-14 08:39] LABS: Basophils # (A) 0.1 k/uL (0-0.2); Basophils % (A) 2 %; Eosinophils # (A) 0.5 k/uL (0-0.7); Eosinophils % (A) 7 %; HCT 40.5 % (39.0-53.0); HGB 13.2 gm/dL (13.0-17.5); Lymphocytes # (A) 2.5 k/uL (1.0-4.8); Lymphocytes % (A) 33 %; MCH 30.1 pg (25.0-35.0); MCHC 32.5 g/dL (31.0-37.0); MCV 92.6 fL (80.0-100.0); Mean Platelet Volume 6.7; Monocytes # (A) 0.6 k/uL (0-1.0); Monocytes % (A) 7 %; Neutrophils # (A) 3.6 k/uL (1.3-7.7); Neutrophils % (A) 48 %; Platelet Count 891 k/uL (150-450); RBC 4.38 m/uL (4.30-5.90); RDW 14.8 % (11.5-15.5); WBC 7.5 k/uL (3.8-10.6)
[2018-11-14 08:58] LABS: ALT 25 U/L (21-72); AST 26 U/L (17-59); African American GFR (CKD) >90 (>60 ml/min/1.73 sqM); Albumin 3.8 g/dL (3.5-5.0); Alkaline Phosphatase 71 U/L (38-126); Amylase 73 U/L (30-110); Anion Gap 10 mmol/L; Blood Urea Nitrogen 4 mg/dL (9-20); Calcium 9.5 mg/dL (8.4-10.2); Carbon Dioxide 26 mmol/L (22-30); Chloride 104 mmol/L (98-107); Glucose 124 mg/dL (74-99); Potassium 4.2 mmol/L (3.5-5.1); Sodium 140 mmol/L (137-145); Total Bilirubin 0.3 mg/dL (0.2-1.3); Total Protein 6.5 g/dL (6.3-8.2)
[2018-11-14] MEDS: MORPHINE SULFATE 4 MG/ML SYRINGE IV PRN ×3 (11:32→22:35)
--- NOTE | 2018-11-14 14:21 | CDI ---
Documentation Clarification Form Date: 11/14/2018 2:12:47 PM From: Renetta YeeALEXANDER, CCDS Admit Date: 11/12/2018 1:33:00 PM Patient Name: Blayne Paniagua Visit Number: [id number] Discharge Date: ATTENTION: The Clinical Documentation Specialists (CDI) and [facility] Coding Staff appreciate your assistance in clarifying documentation. Please respond to the clarification below the line at the bottom and electronically sign. The CDI & [facility] Coding staff will review the response and follow-up if needed. Please note: Queries are made part of the Legal Health Record. If you have any questions, please contact the author of this message via ITS. Dr. Flaca Severino: Per the attending documentation: Acute severe pancreatitis w/recurrent pancreatitis. Per the GI consult: Acute pancreatitis, chronic relapsing pancreatitis. Heavy alcohol abuse, quite drinking 2 months ago. Patient history/risk factors: Recurrent pancreatitis episodes, history of alcohol abuse, GERD, Seizure disorder, Anxiety, Bipolar, Depression, Panic disorder, THC use, Smoker. Clinical Indicators: Presented with acute epigastric abdominal pain, recently admitted to [facility] with acute pancreatitis, discharged stable to home. Radiology: Peripancreatic edema, consistent with history of pancreatitis, no pseudocyst. Fluid about the descending colon favored to reflect dissection of retroperitoneal fluid rather than colitis. Labs: Amylase: 110 - 85 - 73; Lipase 1415 - 1181 - 1169 Vital Signs: Stable Treatment: IV Ms, IV Zofran, IV fluid bolus, IV Toradol, GI consult. In your professional opinion, can the etiology of the pancreatitis be further specified as one of the following, if known? Etiology o Alcohol induced o Biliary o Cytomegaloviral o Drug induced o Idiopathic o Other, please specify o Unable to determine (Last Revision: November 2016) Alcohol induced MTDD
--- NOTE | 2018-11-14 16:52 | PN ---
PROGRESS NOTE DATE OF DICTATION: 11/14/2018 Patient is a 28-year-old white male with history of heavy alcoholism, admitted to the hospital with acute pancreatitis. He was noted to have elevated lipase. He was just hospitalized 3 weeks ago at [facility] with acute pancreatitis and was discharged home after a 7-day hospital stay. The patient states that he is feeling better has some epigastric discomfort. No nausea, vomiting. On a clear liquid diet, tolerating well, requesting advanced diet. He reports no fever, chills or night sweats. PHYSICAL EXAMINATION: He appears comfortable. VITAL SIGNS: Stable. Blood pressure 114/74, pulse rate 62, temperature 98.2. HEENT examination unremarkable. Conjunctivae pink. Sclerae anicteric. Oral cavity no lesions. NECK: No JVD or lymph node enlargement. CHEST: Clear to auscultation. HEART: Regular rate and rhythm. ABDOMEN: Soft. There was minimal tenderness in the epigastric area on deep palpation. EXTREMITIES: No pedal edema. SKIN: No rashes. NEUROLOGIC: Alert and oriented x3. No focal deficits. LABS: WBC 7.5, hemoglobin 9.2, platelets 891. Basic metabolic panel is within normal limits. ALT, AST, T-bilirubin and alkaline phosphatase are within normal limits. Lipase is down to 1169. IMPRESSION: Chronic relapsing pancreatitis secondary to heavy alcohol abuse. He quit drinking about a month ago. Abdominal pain is gradually improving. He still has persistent elevation of lipase. CT of the abdomen during this hospitalization did not show any pseudocyst formation. RECOMMENDATIONS: 1. Advance to full liquid diet. 2. Repeat labs in the morning. 3. Pain medications as needed. 4. Abstinence from alcohol. We will follow him closely during his hospital stay. Thank you for the consultation. MMODL / IJN: [id number] /
--- NOTE | 2018-11-14 17:22 | PN ---
PROGRESS NOTE DATE OF SERVICE: 11/14/2018. This 28-year-old gentleman admitted with abdominal pain with pancreatitis, possibly acute on chronic, is being closely monitored at this time. No chest pain. No palpitations. No fever. Lipase is still elevated. Gastroenterology is following the patient closely. PHYSICAL EXAMINATION: Alert and oriented x3. Pulse is 68, blood pressure 118/65, respiration 18, temperature 98.4, pulse ox 98% on room air. HEENT: Conjunctivae normal. NECK: No jugular venous distention. CARDIOVASCULAR SYSTEM: S1, S2 muffled. RESPIRATORY SYSTEM: Breath sounds diminished at the bases. A few scattered rhonchi. No crackles. ABDOMEN: Soft. Mild diffuse discomfort in epigastrium. No guarding. No rigidity. No mass palpable. LEGS: No edema. No swelling. NERVOUS SYSTEM: No focal deficit. LABS: WBC 7.5, hemoglobin 13.2, platelets 891. The lipase is 1169. ASSESSMENT: 1. Acute severe pancreatitis with recurrent pancreatitis with severe abdominal pain, present on admission. 2. History of recent acute pancreatitis. 3. Continued abdominal pain. 4. Increased platelets and thrombocytosis. 5. Gastroesophageal reflux disease. 6. History of seizure disorder. 7. History of anxiety, bipolar, depression. 8. History of panic disorder. 9. History of tetrahydrocannabinol. 10.History of nicotine dependence. RECOMMENDATIONS AND DISCUSSION: At this time I recommend to continue current medications, continue with the monitoring, symptomatic treatment. Otherwise at this time I would recommend advanced diet per Gastroenterology. Repeat labs. Otherwise, closely monitor. Increase ambulation. Probably discharge home in the next 24-48 hours. Follow up with Gastroenterology. Further recommendations to follow. MMODL / IJN: [id number] /
[2018-11-14] MEDS: traZODone HCL 50 MG TAB PO SCH (21:55)
[2018-11-14] MEDS: PANTOPRAZOLE 40 MG TABLET PO SCH (21:56)
[2018-11-15] MEDS: SODIUM CHLORIDE 0.9% 1,000 ML IV SCH ×2 (02:59→10:42)
[2018-11-15] MEDS: MORPHINE SULFATE 4 MG/ML SYRINGE IV PRN ×2 (04:51→10:37)
[2018-11-15 07:02] VITALS: PULSE 76; RESP 16; TEMP 97.5
[2018-11-15] MEDS: HYDROcodone/APAP 5-325MG 1 EACH TAB PO PRN (07:30)
[2018-11-15] MEDS: lamoTRIgine 100 MG TAB PO SCH (07:30)
[2018-11-15] MEDS: NICOTINE 14MG/24HR PATCH TRANSDERM SCH (07:30)
[2018-11-15] MEDS: GABAPENTIN 300 MG CAP PO SCH (07:30)
[2018-11-15] MEDS: LISINOPRIL-HCTZ 10-12.5 MG 1 EACH TAB PO SCH (07:30)
[2018-11-15] MEDS: HEPARIN SODIUM,PORCINE 5,000 UNIT/ML 1 ML VIAL SQ SCH (07:30)
[2018-11-15] MEDS: PANTOPRAZOLE 40 MG TABLET PO SCH (07:31)
[2018-11-15 07:49] VITALS: BP 124/75
[2018-11-15 08:59] LABS: Basophils # (A) 0.1 k/uL (0-0.2); Basophils % (A) 1 %; Eosinophils # (A) 0.5 k/uL (0-0.7); Eosinophils % (A) 8 %; HGB 12.2 gm/dL (13.0-17.5); Lymphocytes # (A) 2.8 k/uL (1.0-4.8); Lymphocytes % (A) 39 %; MCH 29.7 pg (25.0-35.0); MCV 92.6 fL (80.0-100.0); Monocytes # (A) 0.5 k/uL (0-1.0); Monocytes % (A) 7 %; Neutrophils # (A) 3.1 k/uL (1.3-7.7); Neutrophils % (A) 42 %; Platelet Count 831 k/uL (150-450); RDW 13.7 % (11.5-15.5); WBC 7.3 k/uL (3.8-10.6)
[2018-11-15 09:13] LABS: ALT 24 U/L (21-72); AST 25 U/L (17-59); African American GFR (CKD) >90 (>60 ml/min/1.73 sqM); Albumin 3.5 g/dL (3.5-5.0); Alkaline Phosphatase 63 U/L (38-126); Amylase 55 U/L (30-110); Anion Gap 7 mmol/L; Blood Urea Nitrogen 3 mg/dL (9-20); Calcium 9.1 mg/dL (8.4-10.2); Carbon Dioxide 29 mmol/L (22-30); Chloride 104 mmol/L (98-107); Glucose 120 mg/dL (74-99); Potassium 4.4 mmol/L (3.5-5.1); Sodium 140 mmol/L (137-145); Total Bilirubin 0.2 mg/dL (0.2-1.3); Total Protein 6.1 g/dL (6.3-8.2)
--- NOTE | 2018-11-16 06:57 | DS ---
DISCHARGE SUMMARY DATE OF SERVICE: 11/15/2018. FINAL DIAGNOSES: 1. Acute severe pancreatitis with recurrent pancreatitis with severe abdominal pain, present on admission, possible EtOH induced. 2. History of recent acute pancreatitis. 3. Continued abdominal pain, improved. 4. Increased platelets with thrombocytosis. 5. Gastroesophageal reflux disease. 6. History of seizure disorder. 7. Anxiety, bipolar depression. 8. History of panic disorder. 9. History of THC. 10.History of nicotine dependence. 11.History of EtOH. DISCHARGE DISPOSITION: The patient will be discharged in stable condition with guarded prognosis. HISTORY OF PRESENT ILLNESS: This 28-year-old gentleman with a past medical history of multiple medical problems admitted with acute on chronic pancreatitis. The patient was treated symptomatically. Patient improved significantly. Recommend alcohol cessation. CAT scan reviewed. Gastroenterology saw the patient and recommended outpatient followup. On exam, vitals are stable. CARDIOVASCULAR: S1, S2 muffled. ABDOMEN: Soft. NERVOUS SYSTEM: No focal deficits. DISCHARGE ADVICE: 1. Diet is soft, bland. 2. Follow up with [facility] in 1 to 2 days. 3. Follow up with Dr. Lucero as recommended. MEDICATIONS ARE: 1. Gabapentin 600 mg p.o. t.i.d. 2. Lamictal 150 mg p.o. b.i.d. 3. Trazodone 150 mg q.h.s. 4. Zestoretic 10/12.5 mg p.o. daily. 5. Habitrol 1 daily. 6. [place] 5 mg q.6 p.r.n. 9 tablets. 7. Protonix 40 mg p.o. daily. Once again, patient will be discharged in stable condition with guarded prognosis. MMODL / IJN: [id number] /
== END 2018-11-15 13:20 | disposition home or self-care (01) | DRG 440 ==
LOC: EC 12:16 → 4MS4W 13:33
PROVIDERS: ADMIT Internal Medicine; ATTEND Internal Medicine
DX: K85.20 Alcohol induced acute pancreatitis without necrosis or infection (principal); K86.0 Alcohol-induced chronic pancreatitis; Z71.6 Tobacco abuse counseling; F17.210 Nicotine dependence, cigarettes, uncomplicated; Z71.41 Alcohol abuse counseling and surveillance of alcoholic; F10.10 Alcohol abuse, uncomplicated; F31.9 Bipolar disorder, unspecified; F41.0 Panic disorder [episodic paroxysmal anxiety]; G40.909 Epilepsy, unspecified, not intractable, without status epilepticus; K21.9 Gastro-esophageal reflux disease without esophagitis; Z79.899 Other long term (current) drug therapy; Z87.11 Personal history of peptic ulcer disease; Z88.8 Allergy status to other drugs, medicaments and biological substances; Z91.041 Radiographic dye allergy status; D47.3 Essential (hemorrhagic) thrombocythemia
CPT/HCPCS: 36415; 74176; 80053; 80306; 81003; 82150; 83690; 85025; 96361; 96374; 96375; 99284

== ENCOUNTER → 2018-11-12 | Outpatient (CLI) | payer OTHER ==
[2018-11-12 10:47] LABS: HCT 42.6 % (39.0-53.0); HGB 13.5 gm/dL (13.0-17.5); MCH 29.6 pg (25.0-35.0); MCHC 31.8 g/dL (31.0-37.0); MCV 93.1 fL (80.0-100.0); Mean Platelet Volume 6.6; Platelet Count 916 k/uL (150-450); RBC 4.58 m/uL (4.30-5.90); RDW 13.7 % (11.5-15.5); WBC 9.5 k/uL (3.8-10.6)
[2018-11-12 16:32] LABS: African American GFR (CKD) 146.8 (60.0-200.0); Albumin 4.5 g/dL (3.80-4.90); Albumin/Globulin Ratio 2.37 (1.60-3.17); Anion Gap 11.4 mmol/L (4.00-12.00); BUN/Creat Ratio 12.86 Ratio (12.00-20.00); Calcium 9.6 mg/dL (8.7-10.3); Carbon Dioxide 25.6 mmol/L (21.6-31.8); Globulin 1.9 g/dL (1.6-3.3); Potassium 4.7 mmol/L (3.5-5.5); Total Bilirubin 0.2 mg/dL (0.2-1.2); Total Protein 6.4 g/dL (6.2-8.2)
== END | disposition home or self-care (01) ==
LOC: LABWHC1 09:37
PROVIDERS: ATTEND Physician Assistant
DX: K85.90 Acute pancreatitis without necrosis or infection, unspecified (principal)
CPT/HCPCS: 36415; 80053; 82150; 83690; 85027

== ENCOUNTER 2018-11-20 11:41 | Day surgery (SDC) | payer OTHER ==
[2018-11-19 11:59] VITALS: BMI 29.0
[~2018-11-20 11:41] MED LIST: LACTATED RINGERS 1,000 ML IV SCH; LIDOCAINE 1% 20 ML VIAL (10MG/ML) FOR IV START INTRADERMA PRN
[2018-11-20 12:05] VITALS: TEMP 98.1
[2018-11-20] MEDS ORDERED: LIDOCAINE 1% INJ 10MG/ML (20 ML MDV) ONE (13:21)
[2018-11-20] MEDS ORDERED: PROPOFOL 10 MG/ML 20 ML VIAL IV ONE (13:21)
[2018-11-20 13:52] VITALS: RESP 16
[2018-11-20 14:04] VITALS: BP 110/77; PULSE 70
--- NOTE | 2018-11-20 14:10 | P.PCN ---
Date of Procedure: 11/20/18 Description of Procedure: BRIEF HISTORY: Patient is a 28-year-old, pleasant, male patient who presents for outpatient EGD for evaluation of epigastric pain. Patient had recent hospitalization for acute alcoholic pancreatitis. Since that time he is continued to have epigastric abdominal pain but continues to remain abstinent from alcohol. PROCEDURE PERFORMED: Esophagogastroduodenoscopy with biopsy. PREOPERATIVE DIAGNOSIS: Epigastric abdominal pain. ESTIMATED BLOOD LOSS: Minimal. IV sedation per anesthesia. PROCEDURE: After informed consent was obtained, the patient was brought into the endoscopy unit. IV sedation was administered by Anesthesia under continuous monitoring. Initially the Olympus GIF-190 video endoscope was inserted into the mouth. Esophagus intubated without any difficulty. It was gradually advanced into the stomach and duodenum and carefully examined. The bulb and the second part of the duodenum appeared normal with biopsies taken. The scope at this time was withdrawn to the stomach, adequately insufflated with air, and upon careful examination, mucosa of the antrum, body, cardia and the fundus appeared normal except for some mild scattered erythema in the antrum and body suggestive of mild gastritis biopsied. The scope was then withdrawn into the esophagus. The GE junction was located at 39 cm from the incisors, with a small hiatal hernia noted. The esophagus appeared normal. There were no erosions or ulcerations seen and the patient tolerated the procedure well. IMPRESSION: 1. Mild gastritis antrum and body, biopsied. 2. Duodenal biopsies. 3. Small hiatal hernia. RECOMMENDATIONS: The findings of this examination were discussed with the patient his brother. Okay to resume diet. Await pathology from biopsies. Follow up with gastroenterology as previously scheduled.
== END 2018-11-20 14:20 | disposition home or self-care (01) ==
LOC: ORWHC2ENDO 11:41
PROVIDERS: ATTEND Internal Medicine
DX: K29.50 Unspecified chronic gastritis without bleeding (principal); K44.9 Diaphragmatic hernia without obstruction or gangrene; K21.9 Gastro-esophageal reflux disease without esophagitis; Z72.0 Tobacco use; I10 Essential (primary) hypertension; R56.9 Unspecified convulsions; Z79.899 Other long term (current) drug therapy; Z88.8 Allergy status to other drugs, medicaments and biological substances; Z91.041 Radiographic dye allergy status
CPT/HCPCS: 88305; 43239; J2001; J2704